=== PATIENT | female | born 1940 | race Caucasian/White ===

== ENCOUNTER → 2023-08-12 14:08 | Outpatient (REF) | payer MEDICARE, SELFPAY | LOC: HWRAD 14:08 | PROVIDERS: ATTENDING PHYSICIAN Internal Medicine Cardiovascular Disease; FAMILY PHYSICIAN Internal Medicine | DX: I48.0 Paroxysmal atrial fibrillation (principal); Z79.899 Other long term (current) drug therapy | CPT/HCPCS: 71046 ==

== ENCOUNTER → 2023-09-22 12:42 | Outpatient (REF) | payer MEDICARE, SELFPAY | LOC: HWRCS 12:42 | PROVIDERS: ATTENDING PHYSICIAN Internal Medicine Cardiovascular Disease; FAMILY PHYSICIAN Internal Medicine | DX: I50.32 Chronic diastolic (congestive) heart failure (principal); I48.0 Paroxysmal atrial fibrillation; I34.0 Nonrheumatic mitral (valve) insufficiency; Z79.899 Other long term (current) drug therapy | CPT/HCPCS: 93306 ==

== ENCOUNTER 2024-03-23 18:49 | Inpatient (IN) | payer MEDICARE, SELFPAY ==
[2024-03-23] VITALS (12 sets, daily range): BP systolic 118–148; BP diastolic 55–76; BMI 17.4
--- NOTE | 2024-03-23 10:47 | ED.GENMED ---
ED Provider Triage
<Jyothi Lema BATCH HEAT TREAT OPERATOR - Last Filed: 03/23/24 10:49>
-
Patient seen by provider in Triage?: Seen in Triage
Attestation: A medical screening examination has been initiated by a qualified medical provider. Based on the assessment performed at this time, it has been determined that an emergent medical condition may exist and the patient has been informed
that further medical evaluation and possible additional diagnostic testing may be needed.
HPI: 83-year-old female with history of colon cancer, anemia presents with her who states she has been 'gasping for air.' When she had a cold 3 weeks ago, it got better but in the past week it got worse again.
GENERAL: Alert , in no apparent distress
EYE: No visual abnormalities.
NECK: Trachea midline
ENT: No visible abnormalities.
LUNGS: No acute respiratory distress
NEUROLOGICAL: Alert and oriented
SKIN: Skin intact. No visible changes.
MUSCULOSKELETAL: Moving extremities normally
PSYCH: Normal and appropriate interaction.
This is a medical evaluation conducted in person to initiate diagnostic evaluation and provide initial therapeutics. Please see further documentation by the treating clinician.
History of Present Illness
<Jyothi Lema BATCH HEAT TREAT OPERATOR - Last Filed: 03/23/24 10:49>
General
Chief Complaint: Breathing Problem
Time Seen by Provider: 03/23/24 12:41
<Karlos Rowe MD - Last Filed: 03/23/24 19:39>
General
Source: patient
Exam Limitations: none
Nursing documentation reviewed up to this point in time: agreed with
History of Present Illness
History of Present Illness:
Patient presents to ED from home secondary to worsening cough, shortness of breath, and decreased appetite over the past 2 weeks. Patient states that she has hard time ambulating due to generalized weakness. Denies fever. Patient reports nausea
sensation without vomiting. Patient does report diarrhea since yesterday. Denies rash. Denies headache. Denies sore throat. Denies back pain. Denies recent travel. Denies sick contact. Patient states that she has not been able to take any of
the medication for the past 1 week due to constant nausea and decreased appetite.
Past History
<Jyothi Lema NP - Last Filed: 03/23/24 10:49>
Past History
ED Past Medical History: None
ED Past Surgical History:
Social History
Tobacco: Non-smoker
Alcohol: None
Drug: None
Personal:
Living: with family
Employment: Retired
Review of Systems
<Karlos Rowe MD - Last Filed: 03/23/24 19:39>
Review of Systems
Allergies reviewed?: Yes
All Other Systems: ROS reviewed and negative except as documented in HPI and ROS
Constitutional: Reports no symptoms; Denies fever
EENT: Reports no symptoms
Respiratory: Reports cough and trouble breathing
Cardiac: Reports no symptoms
ABD/GI: Reports nausea and diarrhea; Denies abdominal pain or vomiting
: Reports no symptoms
Musculoskeletal: Reports no symptoms
Skin: Reports no symptoms
Neurological: Reports weakness; Denies dizzy or headache
Phy Exam
<Karlos Rowe MD - Last Filed: 03/23/24 19:39>
Physical Exam
Physical Exam:
Physical Exam
General: moderate respiratory distress, acutely ill. afebrile. weak appearing
Head: nc/at. eomi
Neck: supple. no meningeal signs. no jvd
Heart: s1/s2 regular rate and rhythm, systolic ejection murmur.
Lungs: no acute respiratory distress. diminished breath sounds bilaterally
Abdomen: normal bowel sounds. not tender.
Neuro: alert and oriented x 3. no focal neurological deficits
Skin: no rash
Psychiatric: well kept. interactive and cooperative
Extremities: no edema. no calf tenderness.
Scores
<Karlos Rowe MD - Last Filed: 03/23/24 19:39>
Heart Failure Risk
Heart Failure Risk Score: Not Applicable
Course
<Jyothi Lema NP - Last Filed: 03/23/24 10:49>
Orders/Labs/Results
Orders:
Orders
03/23/24 10:54
Electrocardiogram (*1) Urgent
Reason for Study: Shortness of Breath
EKG- Treatment ONCE
03/23/24 11:17
BNP [NT-proBNP] Urgent
COVID-19 Antigen Urgent
Source: Nasal Swab
Complete Blood Count/With Diff Urgent
Troponin I Urgent
Influenza A+B Rapid Molecular Urgent
KEMAL Source: Nasal Swab
Specimen Description:
03/23/24 12:29
CXR [CR Chest Portable - 1 View] Urgent
Comment:
Reason For Exam: sob
Reason Study Needs to be Portable: Patient Unstable
03/23/24 12:53
0.9% Sodium Chloride 500 ml [Nss] 500 ml IV BOLUS
03/23/24 12:54
Albuterol Nebs [Ventolin Nebules] 2.5 mg INH R NOW STA
Guaifenesin/Codeine Solution [Robitussin AC] 10 ml PO NOW STA
03/23/24 12:55
Add On- LAB Urgent
Tests Added?: magnesium, TSH to reflex Free T4
03/23/24 13:01
Comprehensive Metabolic Panel Urgent
Free T4 Urgent
Comment: ADD ON
Magnesium Urgent
Comment: ADD
TSH Urgent
Comment: ADD ON
03/23/24 13:10
Respiratory Syncytial Virus Urgent
KEMAL Source: Nasal Swab
Specimen Description:
Date Specimen was Collected: 03/23/24
Time Specimen was Collected: 13:01
03/23/24 13:39
CT Chest PE Study Urgent
Comment:
Reason For Exam: severe hypoxia
03/23/24 14:59
Add On- LAB Urgent
Tests Added?: tsh
03/23/24 Dinner
NPO
Allow oral meds: No
Allow clear liquids: No
03/23/24 16:38
Piperacillin/Tazo 3.375 Gram [Zosyn] 3.375 gram in 50 ml IV NOW
03/23/24 16:39
Vancomycin 1 Gram/200 ml [Vancocin] 1 gram in 200 ml IV NOW
03/23/24 17:05
Add On- LAB Stat
Comments:: mag
Tests Added?: bmp
03/23/24 17:06
Add On- LAB Stat
Comments:: free t4
Tests Added?: reflex off of tsh
03/23/24 17:12
Blood Culture Q30M
KEMAL Source: Blood/Venous
Specimen Description:
03/23/24 17:13
Lactic Acid Q4H
Comment: CANCEL 2nd LACTIC ACID IF 1st LACTIC ACID IS LESS THAN 2
Blood Culture Q30M
KEMAL Source: Blood/Venous
Specimen Description:
03/23/24 18:00
Potassium Chloride [KCl] 40 meq PO Q4H
03/23/24 18:11
Admit/Transfer Patient As Directed
Co-Sign Provider:
Level of Care: Inpatient admission
Assign to:: Telemetry
Physician / Group: Hospitalist
Diagnosis: Pneumonia
Reason for Telemetry: Medication for Arrhythmia
Date to Stop Telemetry: 03/25/24
Time to Stop Telemetry: 11:00
Reason for Hospitalization: Pneumonia
Expected length of stay greater than two midnights?: Yes
ELOS- Estimated Length of Stay in days: 3
I certify the patient meets the requirements for IP care: Yes
03/23/24 18:12
PRN Pain Medication Management As Directed
May give lesser potent ordered pain med per pt: Yes
preference::
Protocol:: Medication orders for pain may be administered in a
manner that supports deferring to patient preference
when the pt is:
- Requesting an ordered lesser potent pain medication.
Least to most potent pain medications are defined
as: acetaminophen < NSAID < tramadol < opioids
(morphine, oxycodone, hydromorphone).
- Requesting a lesser dose of the same medication IF
ORDERED.
- Requesting a less intrusive route of administration
if both routes are prescribed by the provider (PO <
IV).
03/23/24 18:14
Code Status As Directed
Resuscitation Status: Full Code
03/23/24 18:20
Potassium Chloride [KCl] 40 meq 0.9% Sodium Chloride 250 ml [Nss] 250 ml IV NOW
03/23/24 19:08
0.9% Sodium Chloride 1000 ml [Nss] 1,000 ml IV 100 mls/hr
Bisacodyl [Dulcolax] 10 mg RECTAL [id number] PRN
Ipratropium/Albuterol Sulfate [Duoneb] 3 ml INH R Q4HPRN PRN
03/23/24 19:08
Procalcitonin Routine
PCT Algorithmm Indication: Respiratory
Urinalysis Reflex To Culture Urgent
Legionella Urinary Antigen Routine
KEMAL Source: Urine
Specimen Description:
Respiratory Culture/Gram Stain Routine
KEMAL Source: Sputum
Specimen Description:
Comment: IF NOT OBTAINED IN ED
Strep pneumoniae Antigen Routine
KEMAL Source: Urine
Specimen Description:
Activity As Directed
Activity Level: As Tolerated
Intake/ Output As Directed
Frequency: Per unit guidelines
Pneumatic Compression Sleeves As Directed
Type: Knee high
Vital Signs As Directed
Frequency: Per unit guidelines
Incentive Spirometry [Rx Incentive Spirometry] [RESP] Routine
Frequency: q1h while awake
O2 Therapy [RESP] Routine
Titrate/Wean O2 to maintain O2 sat greater than (%): 92
Pulse Ox/cont/shift [RESP] Routine
Quantity: 1
Special Instructions: continuous pulse ox
Speech Therapy Eval & Treat Routine
DX Deep Vein Thrombosis Video Routine
03/23/24 20:00
Apixaban [Eliquis] 5 mg PO BID
Doxycycline Hyclate [Vibramycin] 100 mg 0.9% Sodium Chloride 250 ml [Nss] 250 ml IV Q12H
Metoprolol [Lopressor] 25 mg PO BID
Piperacillin/Tazo 3.375 Gram [Zosyn] 3.375 gram in 50 ml IV Q6H
03/23/24 22:00
Mirtazapine [Remeron] 7.5 mg PO HS
03/24/24 06:00
Complete Blood Count/No Diff IN AM
Comprehensive Metabolic Panel IN AM
Levothyroxine [Synthroid] 25 mcg PO DAILY @ 0600
03/24/24 08:00
Amiodarone [Pacerone] 200 mg PO DAILY
Amlodipine [Norvasc] 5 mg PO DAILY
Furosemide [Lasix] 20 mg PO DAILY
03/25/24 11:00
DC Protocol for Telemetry ONCE
Abnormal Lab Results
03/23/24 03/23/24
11:17 13:01
WBC 12.5 H 10^3/uL
(4.8-10.8)
MCHC 31.0 L g/dL
(33.0-37.0)
RDW 15.1 H %
(11.5-14.5)
Plt Count 438 H 10^3/uL
(130-400)
Abs Immat Gran (auto) 0.1 H 10^3/uL
(0-0.05)
Absolute Neuts (auto) 11.1 H 10^3/uL
(1.4-6.5)
Absolute Lymphs (auto) 0.5 L 10^3/uL
(1.2-3.4)
Absolute Monos (auto) 0.8 H 10^3/uL
(0.1-0.6)
Immature Gran % 0.9 H %
(0-0.5)
Neutrophils % 88.8 H %
(42.2-75.2)
Lymphocytes % 3.8 L %
(20.5-51.1)
Potassium 3.3 L mmol/L
(3.5-5.1)
Chloride 95 L mmol/L
(98-107)
Carbon Dioxide 35 H mmol/L
(22-30)
BUN 29 H mg/dl
(7-17)
Creatinine 1.1 H mg/dL
(0.6-1.0)
Glucose 122 H mg/dl
(70-99)
Albumin 3.4 L g/dl
(3.5-5.0)
TSH 0.40 L uIU/ml
(0.47-4.68)
Free T4 3.36 H ng/dl
(0.78-2.19)
03/23/24 11:17
03/23/24 13:01
Vital Signs
Initial and Last Documented VS:
Initial Vital Signs
Temp Pulse Resp BP Pulse Ox
98.8 F 92 16 124/64 77
03/23/24 10:47 03/23/24 10:47 03/23/24 10:47 03/23/24 10:47 03/23/24 10:47
Last Documented Vital Signs
Temp Pulse Resp BP Pulse Ox
98.8 F 87 16 136/59 93
03/23/24 10:47 03/23/24 17:30 03/23/24 10:47 03/23/24 17:00 03/23/24 17:30
<Karlos Rowe MD - Last Filed: 03/23/24 19:39>
Orders/Labs/Results
Orders:
Orders
03/23/24 10:54
Electrocardiogram (*1) Urgent
Reason for Study: Shortness of Breath
EKG- Treatment ONCE
03/23/24 11:17
BNP [NT-proBNP] Urgent
COVID-19 Antigen Urgent
Source: Nasal Swab
Complete Blood Count/With Diff Urgent
Troponin I Urgent
Influenza A+B Rapid Molecular Urgent
KEMAL Source: Nasal Swab
Specimen Description:
03/23/24 12:29
CXR [CR Chest Portable - 1 View] Urgent
Comment:
Reason For Exam: sob
Reason Study Needs to be Portable: Patient Unstable
03/23/24 12:53
0.9% Sodium Chloride 500 ml [Nss] 500 ml IV BOLUS
03/23/24 12:54
Albuterol Nebs [Ventolin Nebules] 2.5 mg INH R NOW STA
Guaifenesin/Codeine Solution [Robitussin AC] 10 ml PO NOW STA
03/23/24 12:55
Add On- LAB Urgent
Tests Added?: magnesium, TSH to reflex Free T4
03/23/24 13:01
Comprehensive Metabolic Panel Urgent
Free T4 Urgent
Comment: ADD ON
Magnesium Urgent
Comment: ADD
TSH Urgent
Comment: ADD ON
03/23/24 13:10
Respiratory Syncytial Virus Urgent
KEMAL Source: Nasal Swab
Specimen Description:
Date Specimen was Collected: 03/23/24
Time Specimen was Collected: 13:01
03/23/24 13:39
CT Chest PE Study Urgent
Comment:
Reason For Exam: severe hypoxia
03/23/24 14:59
Add On- LAB Urgent
Tests Added?: tsh
03/23/24 Dinner
NPO
Allow oral meds: No
Allow clear liquids: No
03/23/24 16:38
Piperacillin/Tazo 3.375 Gram [Zosyn] 3.375 gram in 50 ml IV NOW
03/23/24 16:39
Vancomycin 1 Gram/200 ml [Vancocin] 1 gram in 200 ml IV NOW
03/23/24 17:05
Add On- LAB Stat
Comments:: mag
Tests Added?: bmp
03/23/24 17:06
Add On- LAB Stat
Comments:: free t4
Tests Added?: reflex off of tsh
03/23/24 17:12
Blood Culture Q30M
KEMAL Source: Blood/Venous
Specimen Description:
03/23/24 17:13
Lactic Acid Q4H
Comment: CANCEL 2nd LACTIC ACID IF 1st LACTIC ACID IS LESS THAN 2
Blood Culture Q30M
KEMAL Source: Blood/Venous
Specimen Description:
03/23/24 18:00
Potassium Chloride [KCl] 40 meq PO Q4H
03/23/24 18:11
Admit/Transfer Patient As Directed
Co-Sign Provider:
Level of Care: Inpatient admission
Assign to:: Telemetry
Physician / Group: Hospitalist
Diagnosis: Pneumonia
Reason for Telemetry: Medication for Arrhythmia
Date to Stop Telemetry: 03/25/24
Time to Stop Telemetry: 11:00
Reason for Hospitalization: Pneumonia
Expected length of stay greater than two midnights?: Yes
ELOS- Estimated Length of Stay in days: 3
I certify the patient meets the requirements for IP care: Yes
03/23/24 18:12
PRN Pain Medication Management As Directed
May give lesser potent ordered pain med per pt: Yes
preference::
Protocol:: Medication orders for pain may be administered in a
manner that supports deferring to patient preference
when the pt is:
- Requesting an ordered lesser potent pain medication.
Least to most potent pain medications are defined
as: acetaminophen < NSAID < tramadol < opioids
(morphine, oxycodone, hydromorphone).
- Requesting a lesser dose of the same medication IF
ORDERED.
- Requesting a less intrusive route of administration
if both routes are prescribed by the provider (PO <
IV).
03/23/24 18:14
Code Status As Directed
Resuscitation Status: Full Code
03/23/24 18:20
Potassium Chloride [KCl] 40 meq 0.9% Sodium Chloride 250 ml [Nss] 250 ml IV NOW
03/23/24 19:08
0.9% Sodium Chloride 1000 ml [Nss] 1,000 ml IV 100 mls/hr
Bisacodyl [Dulcolax] 10 mg RECTAL [id number] PRN
Ipratropium/Albuterol Sulfate [Duoneb] 3 ml INH R Q4HPRN PRN
03/23/24 19:08
Procalcitonin Routine
PCT Algorithmm Indication: Respiratory
Urinalysis Reflex To Culture Urgent
Legionella Urinary Antigen Routine
KEMAL Source: Urine
Specimen Description:
Respiratory Culture/Gram Stain Routine
KEMAL Source: Sputum
Specimen Description:
Comment: IF NOT OBTAINED IN ED
Strep pneumoniae Antigen Routine
KEMAL Source: Urine
Specimen Description:
Activity As Directed
Activity Level: As Tolerated
Intake/ Output As Directed
Frequency: Per unit guidelines
Pneumatic Compression Sleeves As Directed
Type: Knee high
Vital Signs As Directed
Frequency: Per unit guidelines
Incentive Spirometry [Rx Incentive Spirometry] [RESP] Routine
Frequency: q1h while awake
O2 Therapy [RESP] Routine
Titrate/Wean O2 to maintain O2 sat greater than (%): 92
Pulse Ox/cont/shift [RESP] Routine
Quantity: 1
Special Instructions: continuous pulse ox
Speech Therapy Eval & Treat Routine
DX Deep Vein Thrombosis Video Routine
03/23/24 20:00
Apixaban [Eliquis] 5 mg PO BID
Doxycycline Hyclate [Vibramycin] 100 mg 0.9% Sodium Chloride 250 ml [Nss] 250 ml IV Q12H
Metoprolol [Lopressor] 25 mg PO BID
Piperacillin/Tazo 3.375 Gram [Zosyn] 3.375 gram in 50 ml IV Q6H
03/23/24 22:00
Mirtazapine [Remeron] 7.5 mg PO HS
03/24/24 06:00
Complete Blood Count/No Diff IN AM
Comprehensive Metabolic Panel IN AM
Levothyroxine [Synthroid] 25 mcg PO DAILY @ 0600
03/24/24 08:00
Amiodarone [Pacerone] 200 mg PO DAILY
Amlodipine [Norvasc] 5 mg PO DAILY
Furosemide [Lasix] 20 mg PO DAILY
03/25/24 11:00
DC Protocol for Telemetry ONCE
Abnormal Lab Results
03/23/24 03/23/24
11:17 13:01
WBC 12.5 H 10^3/uL
(4.8-10.8)
MCHC 31.0 L g/dL
(33.0-37.0)
RDW 15.1 H %
(11.5-14.5)
Plt Count 438 H 10^3/uL
(130-400)
Abs Immat Gran (auto) 0.1 H 10^3/uL
(0-0.05)
Absolute Neuts (auto) 11.1 H 10^3/uL
(1.4-6.5)
Absolute Lymphs (auto) 0.5 L 10^3/uL
(1.2-3.4)
Absolute Monos (auto) 0.8 H 10^3/uL
(0.1-0.6)
Immature Gran % 0.9 H %
(0-0.5)
Neutrophils % 88.8 H %
(42.2-75.2)
Lymphocytes % 3.8 L %
(20.5-51.1)
Potassium 3.3 L mmol/L
(3.5-5.1)
Chloride 95 L mmol/L
(98-107)
Carbon Dioxide 35 H mmol/L
(22-30)
BUN 29 H mg/dl
(7-17)
Creatinine 1.1 H mg/dL
(0.6-1.0)
Glucose 122 H mg/dl
(70-99)
Albumin 3.4 L g/dl
(3.5-5.0)
TSH 0.40 L uIU/ml
(0.47-4.68)
Free T4 3.36 H ng/dl
(0.78-2.19)
03/23/24 11:17
03/23/24 13:01
Vital Signs
Initial and Last Documented VS:
Initial Vital Signs
Temp Pulse Resp BP Pulse Ox
98.8 F 92 16 124/64 77
03/23/24 10:47 03/23/24 10:47 03/23/24 10:47 03/23/24 10:47 03/23/24 10:47
Last Documented Vital Signs
Temp Pulse Resp BP Pulse Ox
98.8 F 87 16 136/59 93
03/23/24 10:47 03/23/24 17:30 03/23/24 10:47 03/23/24 17:00 03/23/24 17:30
Omarlt;Karlos Rowe MD - Last Filed: 03/23/24 19:39>
MDM/Problems Addressed
MDM/Problems Addressed:
Initial x-ray without any acute findings. However in light of patient's significant hypoxia without clear etiology, decision made to perform CTA PE study.
CTA PE report reviewed and discussed with patient. Patient with likely aspiration pneumonitis versus pneumonia. Patient will be admitted for IV antibiotics and continual supplemental consistent administration.
<aKrlos Rowe MD - Last Filed: 03/23/24 19:39>
*Critical Care Note
Total Time (30-74mins, 75-104mins- exclusive of procedures): Not Applicable
ED Attending Note
<Jyothi Lema NP - Last Filed: 03/23/24 10:49>
-
Portions of this chart may have been created with voice recognition software.� Occasional wrong word or��sound alike� substitutions may have occurred due to the inherent limitations of voice recognition software.
Discharge Plan
Departure
Patient Disposition: Admit
Date of Disposition: 03/23/24
Time of Disposition: 16:41
Admit to: IMU
Presentation/result/management discussed w/ accepting MD/DO: Hospitalist
Discharge Problem:
Hypoxia, Pneumonia
Interventions
Interventions:
*Risk Screen - Suicide Last Done: 03/23/24 10:47
*General Assessment Last Done: 03/23/24 15:00
*Neglect/Abuse Screening Last Done: 03/23/24 15:00
*ED COVID-19 Vaccine History Last Done: 03/23/24 15:00
ED- Cardiac Assessment Last Done: 03/23/24 15:00
ED- Pulmonary Assessment Last Done: 03/23/24 15:00
[2024-03-23 11:32] LABS: % Basophils 0.2 % (0-2); % Immature Granulocytes 0.9 % (0-0.5); % Lymphocytes 3.8 % (20.5-51.1); % Monocytes 6.3 % (1.7-9.3); % Neutrophils 88.8 % (42.2-75.2); Absolute Immature Granulocytes 0.1 10^3/uL (0-0.05); Absolute Lymphocytes 0.5 10^3/uL (1.2-3.4); Absolute Monocytes 0.8 10^3/uL (0.1-0.6); Absolute Neutrophils 11.1 10^3/uL (1.4-6.5); Hemoglobin 12.1 g/dL (12.0-16.0); Mean Corpuscular Volume 87.1 fL (81.0-99.0); Mean Platelet Volume 9.4 fL (7.4-10.4); Nucleated Red Blood Cells % 0 %; Platelet Count 438 10^3/uL (130-400); Red Blood Cell Count 4.48 10^6/uL (4.20-5.40); Red Cell Dist. Width 15.1 % (11.5-14.5); White Blood Cell Count 12.5 10^3/uL (4.8-10.8)
[2024-03-23 11:43] LABS: COVID-19 Antigen Negative (Negative)
[2024-03-23 12:01] LABS: NT-proBNP 2230 pg/ml
[2024-03-23 12:30] LABS: Troponin I 0.018 ng/ml
[2024-03-23] MEDS: NSS 500 IV (13:02)
[2024-03-23] MEDS: VENTOLIN NEBULES 2.5 MG INH (13:06)
[2024-03-23] MEDS: ROBITUSSIN AC 10 ML PO (13:06)
[2024-03-23 13:28] LABS: ALT (SGPT) 20 U/L (0-35); AST (SGOT) 21 U/L (14-36); Albumin 3.4 g/dl (3.5-5.0); Alkaline Phosphatase 98 U/L (38-126); Blood Urea Nitrogen 29 mg/dl (7-17); Calcium 9.7 mg/dl (8.4-10.2); Chloride 95 mmol/L (98-107); Glucose 122 mg/dl (70-99); Magnesium 2.3 mg/dl (1.6-2.3); Sodium 141 mmol/L (135-145); Total Bilirubin 0.6 mg/dl (0.2-1.3); Total Protein 6.8 g/dl (6.3-8.2); eGFR 49.86
[2024-03-23 14:42] LABS: Carbon Dioxide 35 mmol/L (22-30); Potassium 3.3 mmol/L (3.5-5.1)
[2024-03-23 17:32] LABS: Lactic Acid 1.2 mmol/L (0.7-2.0)
[2024-03-23] MEDS: ZOSYN 50 IV (17:38)
[2024-03-23 17:55] LABS: Free T4 3.36 ng/dl (0.78-2.19)
[2024-03-23] MEDS: VANCOCIN 200 IV (18:19)
--- NOTE | 2024-03-23 18:29 | HPS.HSE ---
Addendum entered and electronically signed by Yo Mejia MD 03/24/24 14:11:
Acute hypoxemic respiratory failure, the lowest documented SpO2 in the 70s, currently on 4 L
Suspect superimposed bacterial infection versus aspiration versus community-acquired
Pro-Stephen
IV antibiotics
Sputum culture blood culture
Wean oxygen as tolerated
Aspiration precautions
N.p.o.
Sepsis white count heart rate lungs
Blood cultures sputum culture
IV antibiotics
Atrial fibrillation
Amiodarone and beta-mike Eliquis
HFpEF, hypovolemic, hold Lasix
Hypokalemic replete as needed
Hypothyroid continue Synthroid
Original Note:
Family Physician
-
Family Physician: Nabor Kevin MD
Chief Complaint
-
SOB, Cough, Nausea, Loss of Appetite
History of Present Illness
83-year-old female with past medical history of HFpEF, paroxysmal atrial fibrillation, hypertension, hypothyroidism presented with 2 weeks of worsening cough, shortness of breath, decreased appetite. Patient states that approximately 3 weeks ago
she and her had a viral illness. The 's illness resolved after 1 week, however her illness continued. Over the past week, patient states that cough and shortness of breath have been progressively worsening. Cough is productive of
clear sputum. Patient notes that she is normally able to do many chores around the house, however over the past 2 days has only been able to walk approximately 20 feet to her bathroom before becoming short of breath. Additionally, she reports a
loss of appetite with nausea, however denies any vomiting, abdominal pain, diarrhea, constipation. Patient does note however, that she has been unable to take her oral medications for approximately 1 week. Patient denies the use of home oxygen.
ED course: Patient was moderate respiratory distress, afebrile, weak and was saturating 77% on room air on arrival.
WBC 12.5, K3.3, CR 1.1. EKG showed prolonged QT interval. EKG showed possible inferolateral ischemia. Troponins negative. BNP 2230.
COVID/flu/RSV negative. Chest x-ray: No acute pulmonary abnormality. Chest CT: Severe pneumonia, bronchiolitis throughout the right lung likely secondary to aspiration and a 4 mm nodule in the lingula.
Medical History
Past Medical History
Past Medical History: Reports Other (Heart failure with preserved ejection fraction (EF 60 to 65%), paroxysmal atrial fibrillation, hypertension, hypothyroidism, colon cancer, chronic anemia)
Past Surgical History: Reports Bowel Resection
Social History
Tobacco: Former Smoker (Quit smoking approximately 25 years ago. Half pack a day smoker for approximately 20 years.)
Alcohol: None
Drug: None
Personal:
Living: With Family
Employment: Retired
Family History
Family History: Not pertinent
Allergies / Home Medications
Allergies reflects when Allergies were last updated in [employer].
Home Medications with original date entered in [employer]
Allergy/Medication List:
No known drug allergies.
Amlodipine 5 mg p.o. daily
Levothyroxine 25 mcg p.o. daily
Mirtazapine 15 mg p.o. daily
Metoprolol 25 mg p.o. daily
Amiodarone 200 mg p.o. daily
Eliquis 5 mg p.o. twice daily
Furosemide 20 mg p.o. daily
Review of Systems
-
History Source: Patient
A 12 point ROS was completed and negative except as noted: Yes
Physical Exam
Vital Signs
Vital Signs
Temp Pulse Resp BP Pulse Ox
98.8 F 87 16 136/59 93
03/23/24 10:47 03/23/24 17:30 03/23/24 10:47 03/23/24 17:00 03/23/24 17:30
Physical Exam
General: Cachectic (Frail, elderly) and Other (No apparent distress on 4 L of oxygen)
HEENT: NormoCephalic, Anicteric and Moist mucous membranes
Respiratory: Non Labored Respirations (On 4 L of oxygen) and Decreased Breath Sounds (Throughout)
Cardiac: Irregular Rhythm and Murmur; No Tachycardia
GI: Soft, Non Tender and Non Distended
Musculoskeletal: No Clubbing, No Cyanosis and No Edema
Skin: Warm and Dry
Neuro: Awake and Alert
Psych: Calm
Laboratory Results
-
03/23/24 11:17
03/23/24 13:01
Laboratory Results
Lactic Acid Cancelled 03/23/24 20:45
Total Bilirubin 0.6 mg/dl (0.2-1.3) 03/23/24 13:01
AST 21 U/L (14-36) 03/23/24 13:01
ALT 20 U/L (0-35) 03/23/24 13:01
Alkaline Phosphatase 98 U/L (38-126) 03/23/24 13:01
Troponin I 0.018 ng/ml 03/23/24 11:17
Data Reviewed
-
Diagnostic Radiology: Report Reviewed by me and Discussed with Patient
CT Scan: Report Reviewed by me and Discussed with Patient
Lab Data: Labs Reviewed by me and Discussed with Patient
Impression/Plan
-
1. Pneumonia (Sepsis POA)
-aspiration versus superimposed on recent viral infection
-IV doxycycline; transition to p.o. once diet is advanced
-IV Zosyn
-N.p.o., speech and swallow evaluation
-IVF: NS at 100 mL/h
-Oxygen by nasal cannula as needed, wean as tolerated (4 L on day of admission)
-DuoNebs as needed, incentive spirometry
-Sputum culture, blood cultures, Legionella urinary antigen, strep antigen, procalcitonin
2. HFpEF
-Continue home Lasix 20 mg daily
3. Paroxysmal atrial fibrillation
-Continue home meds: Metoprolol, amiodarone, Eliquis
4. Hypertension
-Continue home meds: Norvasc
5. Hypothyroidism
-Continue home meds: Levothyroxine
6. Hypokalemia (POA)
-Replete 40 mEq now
7. Mild DOMINGO
-Creatinine 1.1 on admission
-Follow-up BMP in a.m.
8. Pulmonary nodule
-4 mm nodule in the lingula on CT chest
-Outpatient follow-up, repeat imaging in 12 months
PCP: Dr. Kevin
N.p.o./SCDs
[2024-03-23] MEDS: NSS 1000 IV (19:53)
[2024-03-23] MEDS: KCL 270 MEQ IV (19:54)
[2024-03-23] MEDS: VIBRAMYCIN 260 MG IV (20:10)
[2024-03-23] MEDS: LOPRESSOR 25 MG PO (20:11)
--- NOTE | 2024-03-23 21:30 | PTCARENOTE ---
Pt received from ED at 2114. Pt pleasant, AAOx3, VSS, and rolled into room. Pt exhibiting moist cough, on 4L NC, O2 95%, and does not complain of any pain at this time. Pt receptive to room and call geiger. Pt bed in lowest position and call geiger
within reach. Pt educated on importance of call geiger usage, pt relays understanding and cooperation. Will continue with current plan of care.
--- NOTE | 2024-03-23 23:54 | W.PN.UPDATE ---
Update Note
Progress Note Update
based on pt weight of 43kg pharmacy recommends change of eliquis from 5mg bid to 2.5mg bid
[2024-03-24] MEDS: ELIQUIS 2.5 MG PO ×3 (00:03→19:52)
[2024-03-24] MEDS: REMERON 7.5 MG PO ×2 (00:04→22:08)
[2024-03-24] MEDS: ZOSYN 50 IV ×5 (00:31→23:11)
[2024-03-24] MEDS: ROBITUSSIN 200 MG PO (00:41)
[2024-03-24 03:59] VITALS: BP 136/76
[2024-03-24] MEDS: SYNTHROID 25 MCG PO (05:26)
[2024-03-24] MEDS: NSS 1000 IV ×2 (05:26→17:19)
[2024-03-24 06:28] LABS: Glucose - Point of Care 105 mg/dl (70-99)
[2024-03-24 07:24] LABS: Hematocrit 32.4 % (37.0-47.0); Mean Corp Hgb Conc. 30.9 g/dL (33.0-37.0); Mean Corpuscular Hgb 27.2 pg (27.0-31.0); Mean Platelet Volume 9.8 fL (7.4-10.4); Platelet Count 353 10^3/uL (130-400); Red Blood Cell Count 3.68 10^6/uL (4.20-5.40); White Blood Cell Count 8.6 10^3/uL (4.8-10.8)
[2024-03-24 07:32] VITALS: BP 140/60
[2024-03-24 07:44] LABS: ALT (SGPT) 18 U/L (0-35); AST (SGOT) 24 U/L (14-36); Albumin 2.7 g/dl (3.5-5.0); Alkaline Phosphatase 81 U/L (38-126); Blood Urea Nitrogen 16 mg/dl (7-17); Calcium 8.5 mg/dl (8.4-10.2); Carbon Dioxide 35 mmol/L (22-30); Chloride 105 mmol/L (98-107); Estimated Creatinine Clearance 32 ml/min; Glucose 99 mg/dl (70-99); Potassium 4.2 mmol/L (3.5-5.1); Sodium 144 mmol/L (135-145); Total Bilirubin 0.3 mg/dl (0.2-1.3); Total Protein 5.6 g/dl (6.3-8.2); eGFR > 60.00
[2024-03-24] MEDS: VIBRAMYCIN 260 MG IV (08:22)
[2024-03-24] MEDS: LASIX 20 MG PO (08:27)
[2024-03-24] MEDS: PACERONE 200 MG PO (08:27)
[2024-03-24] MEDS: LOPRESSOR 25 MG PO ×2 (08:27→19:54)
[2024-03-24] MEDS: NORVASC 5 MG PO (08:27)
[2024-03-24 09:13] LABS: Urine Albumin 2+ (Neg - Trace); Urine Bilirubin Negative (Negative); Urine Character Clear (Clear); Urine Color Yellow; Urine Glucose Negative (Negative); Urine Ketone Negative (Negative); Urine Leukocyte Negative (Negative); Urine Nitrite Negative (Negative); Urine Occult Blood Negative (Negative); Urine Specific Gravity 1.015 (<1.030); Urine Urobilinogen Negative (Neg - 1+)
--- NOTE | 2024-03-24 09:24 | CON.CAR ---
Consultation
Consultation Request
Date/Time Consultation Requested: 03/24/24
Date/Time Consultation Performed: 03/24/24
Requesting Provider: Libertad
Performing Provider: Rd
Reason for Consultation: Chronic HF
Medical History
-
Chief Complaint: cough and shortness of breath
History of Present Illness:
83 yo woman presents with several weeks of cough and dyspnea found to have elevated WBC and CT chest findings suggestive of LL PNA. She was admitted to telemetry floor where she is being treated with IV abx for PNA. Still requiring supplemental O2
today. Cardiology is asked to evaluated for possible CHF.
Known history of HFpEF maintained on low dose daily lasix as an outpatient. Patient tells me no significant LE edema or weight gain leading up to this hospitalization. proBNP was elevated to 2230 on admission.
Reporting cough and shortness of breath to me today. But no chest pain or pressure.
PMHx:
Heart failure with preserved ejection fraction (EF 60 to 65%)
Paroxysmal atrial fibrillation
Hypertension
Hypothyroidism
Colon cancer
Chronic anemia
Bowel Resection
Past Medical History
Past Medical History: Other (As above)
Past Surgical History: Other (As above)
Social History
Tobacco: Former Smoker
Family History
Family History: Reviewed & Not Pertinent
Allergies / Home Medications
Allergy/AdvReac Type Severity Reaction Status Date / Time
No Known Allergies Allergy Verified 03/23/24 10:54
�Medication �Instructions �Recorded �Confirmed �Type
apixaban 5 mg tablet (Eliquis) 5 mg PO BID ##30 09/12/18 03/23/24 Rx
amlodipine 5 mg tablet 5 mg PO DAILY 07/16/21 03/23/24 History
furosemide 20 mg tablet (Lasix) 20 mg PO DAILY 07/16/21 03/23/24 History
levothyroxine 25 mcg tablet 25 mcg PO DAILY 07/16/21 03/23/24 History
mirtazapine 7.5 mg tablet 7.5 mg PO HS 07/16/21 03/23/24 History
amiodarone 200 mg tablet (Pacerone) 200 mg PO DAILY 03/23/24 03/23/24 History
metoprolol tartrate 25 mg tablet 25 mg PO BID 03/23/24 03/23/24 History
Review of Systems
-
History Source: Patient
All other systems: Negative unless noted
Physical Exam
Vital Signs
Temp Pulse Resp BP Pulse Ox
98.3 F 71 18 140/60 98
03/24/24 07:32 03/24/24 08:27 03/24/24 07:32 03/24/24 08:27 03/24/24 07:32
Lab Results
03/24/24 06:36
03/24/24 06:36
Troponin I 0.018 ng/ml 03/23/24 11:17
Crx-U-Rvkewkrolke Pept 2230 pg/ml 03/23/24 11:17
Physical Exam
General: Well Developed
HEENT: Normocephalic
Respiratory: Crackles (as bases b/l) and Non Labored Respirations (on supplemental O2 via NC)
Cardiac: S1/S2 and Regular Rhythm
Breast: Deferred by me
GI: Soft
Musculoskeletal: No Edema
Skin: Warm and Dry
Neuro: Awake and Alert
Psych: Calm
Impression / Plan
-
Lead Care Manager: JASE Butts
Assessment:
Hypoxia
Cough
Pneumonia
HFpEF, chronic
Paroxysmal atrial fibrillation
Hypertension
Hypothyroidism
Hypokalemia (POA)
Mild DOMINGO
Plan:
-Presents with several weeks of cough and shortness of breath found to have PNA currently being treated with IV abx
-Cardiology is asked to comment on CHF. Does not appear to be volume overloaded on exam. I do not think her presentation represents acute HF.
-Would continue daily maintenance diuretic, lasix 20mg daily
-Judicious use of IVF
-Monitor daily weights
We will sign off, please recall as needed
Data Reviewed
-
EKG: Tracing Personally Visualized and interpreted
Radiology: Image Personally Visualized and interpreted
CT Scan: Image Personally Visualized and interpreted
Medical Tests (Nuc Med, Echo etc): Report Reviewed by me
Labs: Labs Reviewed by me
Old Records: Reviewed
[2024-03-24 09:29] LABS: Urine Squamous Cell 0-2 /LPF (Few)
[2024-03-24 09:30] LABS: Urine Bacteria Few (Negative); Urine Red Blood Cell 0-2 /HPF (0-2); Urine White Cell 0-2 /HPF (0-5)
--- NOTE | 2024-03-24 09:52 | PTOTSP ---
Speech Therapy Evaluation:
Suspect pt's oropharyngeal swallow function is likely at/near baseline, however pt remains at increased risk of aspiration and related complications given current medical illness with severe PNA (R>L) and increased respiratory requirement. Pt with
slow but functional oral phase and no overt s/sx of aspiration across PO trials. Cough noted in the absence of PO. 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
appears appropriate to cautiously resume oral diet.
Recommend:
1. Initiate CAUTIOUS regular and thin liquid diet. d/c oral diet if worsening in imaging or respiratory status
2. Medications as tolerated
3. Strict aspiration precautions: upright all meals, small bites/sips, slow rate, alternate solids/liquids, partial assistance/supervision.
4. COAT ROOM ATTENDANT to follow re: tolerance of current diet and to determine if instrumental assessment warranted
[2024-03-24 10:56] VITALS: BP 140/50
--- NOTE | 2024-03-24 12:36 | W.PN.HOSP.TC ---
Addendum entered and electronically signed by Yo Mejia MD 03/24/24 14:11:
Acute hypoxemic respiratory failure, the lowest documented SpO2 in the 70s, currently on 4 L
Suspect superimposed bacterial infection versus aspiration versus community-acquired
Pro-Stephen neg
IV antibiotics
Sputum culture blood culture
Wean oxygen as tolerated
Aspiration precautions
Consult pulm
Sepsis white count heart rate lungs
Blood cultures sputum culture
IV antibiotics
Atrial fibrillation
Amiodarone and beta-mike Eliquis
HFpEF, hypovolemic, hold Lasix
Hypokalemic replete as needed
Hypothyroid continue Synthroid
Original Note:
Today's Communication/Plan
-
.
Assessment / Plan
Assessment / Plan
1. Pneumonia (Sepsis POA)
-Aspiration versus superimposed on recent viral infection
-Concern for aspiration on CT; started on IV doxycycline last night; following negative swallow study, transition to doxycycline 100 mg p.o. twice daily today
-Continue IV Zosyn
-N.p.o., speech and swallow evaluation: Negative for aspiration, started on regular diet with thin liquids with resumption of home oral medications.
-Cautious, hold p.o. if any decline in respiratory status or worsening in chest imaging, swallow team will closely follow
-Given 1.5 L total fluid last night; judicious use of fluids given history of HFpEF
-Oxygen by nasal cannula as needed, wean as tolerated (4 L on day of admission)
-Patient continues to feel short of breath despite SaO2 in the high 90s on 4 L. Wean to 3 L, monitor symptoms and SaO2.
-DuoNebs as needed, incentive spirometry, Acapella
-Pro-Stephen negative, sputum culture, blood cultures, Legionella urinary antigen, strep antigen pending.
-Pulmonology consult today for additional recommendations.
2. HFpEF
-Seen by cardiology who do not feel that heart failure is a contributing factor.
-Judicious use of IVF as needed
-Continue home Lasix 20 mg daily
3. Paroxysmal atrial fibrillation
-Continue home meds: Metoprolol, amiodarone, Eliquis
4. Hypertension
-Continue home meds: Norvasc
5. Hypothyroidism
-Continue home meds: Levothyroxine
6. Hypokalemia (POA)
-Replete 40 mEq now
7. Mild DOMINGO
-Creatinine 1.1 on admission
-Follow-up BMP in a.m.
8. Pulmonary nodule
-4 mm nodule in the lingula on CT chest
-Outpatient follow-up, repeat imaging in 12 months
PCP: Dr. Kevin
Regular/SCDs
Anticipated Discharge: 24 - 48 hours
Subjective/Interval History
-
Date of Service: March 24, 2024
Patient seen and examined while resting comfortably in bed, and daughter at bedside. Patient appears to be in slightly better spirits this morning, however, states that she 'still feels icky'. Patient saturating well, however still
complains of intermittent shortness of breath.
Objective Data
-
Labs:
Laboratory Results
03/24/24
06:36
WBC 8.6
Hgb 10.0 L
Hct 32.4 L
Plt Count 353
Sodium 144
Potassium 4.2 D
Chloride 105
Carbon Dioxide 35 H
BUN 16
Creatinine 0.9
Glucose 99
Calcium 8.5
Total Bilirubin 0.3
AST 24
ALT 18
Alkaline Phosphatase 81
Vital Signs:
Vital Signs
Temp Pulse Resp BP Pulse Ox
98.3 F 68 18 140/50 98
03/24/24 10:56 03/24/24 10:56 03/24/24 10:56 03/24/24 10:56 03/24/24 10:56
I&O
03/23/24 03/24/24 03/25/24
06:59 06:59 06:59
Intake Total 1300 / 1300
Output Total 150 / 150
Balance 1150 / 1150
Review of Systems
-
History Source: Patient
Constitutional: Reports No Symptoms
EENT: Reports No Symptoms Reported
Respiratory: Reports Cough and Trouble Breathing
Cardiac: Reports No Symptoms
Abdomen/GI: Reports No Symptoms
Neuro: Reports No Symptoms
Physical Exam
-
General: No Apparent Distress and Other (Elderly, frail)
HEENT: Normocephalic and Atraumatic
Respiratory: Crackles, Non Labored Respirations and Decreased Breath Sounds
Cardiac: Regular Rhythm and S1/S2
GI: Soft and Nontender
Musculoskeletal: No Clubbing, No Cyanosis and No Edema
Neuro: Awake and Alert
Psych: Calm
Data Reviewed
-
Labs: Labs Reviewed by me and Discussed with Patient
--- NOTE | 2024-03-24 13:17 | CM ---
Pt seen bedside w/ daughter, Hetal. Initial assessment completed. Admitted for SOB, Cough, Nausea, Loss of Appetite.
Pt reports she lives w/ spouse in a 2STH- 1 small step to enter the home. Pt states she is independent w/ ambulating, has a walker but doesn't use it. Hetal stated pt should be using walker and she's been having frequent falls. Pt currently on 4L
O2, does not use O2 at home.
Pt was at [facility] about 5 years ago for rehab, pt had VN/PT in the past, doesn't recall provider.
Address, points of contact and insurance verified
PCP: Dr. Kevin
Pharmacy: [facility]
Plan: Anticipate home. CM will watch for potential O2 needs at d/c.
[2024-03-24 15:04] VITALS: BP 135/60
--- NOTE | 2024-03-24 16:36 | CON.PUL ---
Consultation
Consultation Request
Date/Time Consultation Requested: 03/24/2024
Date/Time Consultation Performed: 03/24/2024
Requesting Provider: Dr. Mejia
Performing Provider: Dr. Mateo Ramirez
Reason for Consultation: Hypoxemic respiratory failure/abnormal CT chest
Medical History
-
History of Present Illness:
83-year-old woman with past medical history significant for heart failure with preserved ejection fraction, paroxysmal atrial fibrillation, hypertension, hypothyroidism who presented to the hospital on 03/23/2024 complaining of 2 weeks worth of
symptoms including cough, shortness of breath and decreased appetite. She reports about 3 weeks ago she and her acquired a viral illness. Her symptoms improve after 1 week. She continued to have significant symptoms.
Mainly cough, increased shortness of breath that has been progressive. Denies any fevers or chills. Cough is productive of yellow sputum without hemoptysis.
Short of breath worse with minimal efforts with prompted to come to the emergency room.
Denies nausea, vomiting or diarrhea. Denies any rash. Denies arthritis.
Due to coughing that was interfering with lifestyle she was not able to take her medications.
-
In the emergency room she was found hypoxemic. 77% on room air. proBNP elevated in the . Leukocytosis noted. Chest x-ray initially with no acute abnormalities but CT chest showed bilateral pneumonia and bronchiolitis.
Negative viral panel
I was consulted on 03/24/2024 for further care
Past Medical History
Past Medical History: Other (See assessment and plan section)
Social History
Tobacco: Former Smoker (Quit smoking 25 years ago. Half a pack a day for 20 years.)
Alcohol: None
Drug: None
Personal:
Living: With Family
Employment: Retired
Family History
Family History: Reviewed & Not Pertinent
Allergies / Home Medications
Allergies
Allergy/AdvReac Type Severity Reaction Status Date / Time
No Known Allergies Allergy Verified 03/23/24 10:54
Home Medications
�Medication �Instructions �Recorded �Confirmed �Last Taken �Type
apixaban 5 mg tablet (Eliquis) 5 mg PO BID ##30 09/12/18 03/23/24 03/22/24 08:00 Rx
amlodipine 5 mg tablet 5 mg PO DAILY 07/16/21 03/23/24 07/15/21 History
furosemide 20 mg tablet (Lasix) 20 mg PO DAILY 07/16/21 03/23/24 07/15/21 History
levothyroxine 25 mcg tablet 25 mcg PO DAILY 07/16/21 03/23/24 07/15/21 History
mirtazapine 7.5 mg tablet 7.5 mg PO HS 07/16/21 03/23/24 07/15/21 History
amiodarone 200 mg tablet (Pacerone) 200 mg PO DAILY 03/23/24 03/23/24 03/21/24 History
metoprolol tartrate 25 mg tablet 25 mg PO BID 03/23/24 03/23/24 03/23/24 09:00 History
Review of Systems
-
History Source: Patient
All other systems: Negative unless noted
Vitals / Labs / Diagnostic Testing
Vital Signs
Temp Pulse Resp BP Pulse Ox
98.3 F 80 21 135/60 97
03/24/24 15:04 03/24/24 15:04 03/24/24 15:04 03/24/24 15:04 03/24/24 15:04
Lab Data
03/24/24 06:36
03/24/24 06:36
Microbiology
03/23/24 13:10 Nasal Swab Respiratory Syncytial Virus Ag - Final
Negative for Respiratory Syncytial Virus.
A false negative result may be obtained with a specimen
collected early in the acute phase. If symptoms persist, a
new specimen should be tested.
03/23/24 11:17 Nasal Swab Influenza Types A & B (TITO) - Final
Negative for Influenza A & B, NAAT
Negative results must be combined with clinical observations
and patient history.
Nucleic Acid Amplification test (NAAT)performed on the
[employer] NOW platform.
Diagnostic Testing:
Physical Exam
-
HEENT: Normocephalic
Cardiovascular: S1/S2
Respiratory: Rales
GI: Soft and Non Distended
Neurology: Awake and Oriented
Skin: Warm
General: Comfortable
Assessment
-
83-year-old woman with past medical history noted, admitted with 3 weeks worth of symptoms. Initially her and her developed a viral infection. Her symptoms persisted and progressed including worsening coughing, worsening shortness of
breath minimal effort. Admitted through the emergency room with hypoxemia. CT chest showed bilateral pneumonia. I was consulted for evaluation on 03/24/2024.
Patient denies any previous history of pulmonary problems.
Acute hypoxemic respiratory failure
CT chest: 03/23/2024 reviewed, no evidence for pulmonary embolism. Pneumonia/bronchiolitis throughout the right lung and lesser degree left lung. 4 mm lingular nodule likely infectious.
Pneumonia: Likely bacterial postviral.
Negative influenza/negative COVID
Negative RSV
Conditions present prior admission:
-
Former smoker quit 25 years ago
Heart failure with preserved ejection fraction
Paroxysmal atrial fibrillation
Hypertension
Hypothyroidism
History of colon cancer
Chronic anemia
History of bowel resection
Denies any prior pulmonary disease.
Assessment and plan:
Clinical picture/symptoms compatible with pneumonia either viral or bacterial.
So far microbiology has been negative
Obtain a sputum culture if possible
Follow blood cultures
Procalcitonin is negative. This could represent a recovering viral pneumonia with postinfectious symptoms.
Leukocytosis resolved, patient is afebrile
-
Currently on Zosyn/doxycycline
Patient denies any aspiration symptoms
She came from home
Eventually will need radiographic follow-up
If continues to improve in the next 24 hours may consider transition to oral antibiotics and complete total of 7 days.
-
Per family, patient has? COPD-no PFTs. Does not follow-up with pulmonary.
She has chronic shortness of breath that has been worse after developing pneumonia.
She has been losing weight over the last several months. She is mostly sedentary
There is no concern for swallowing dysfunction.
-
Continue oxygen supplementation to maintain pulse ox above 90%.
Acapella device encouraged
Symptomatic management
Will add Pulmicort twice a day while in the hospital
Continue nebulizers as needed-
Antitussives
Mucolytics
-
Patient has been losing weight in the outpatient, likely some degree of muscle mass loss contributing to her chronic shortness of breath.
Physical therapy/Occupational Therapy recommended
-
Patient will require pulmonary follow-up in the outpatient to document radiographic clearance
-
DVT prophylaxis on apixaban
-
Dr. Ramirez updated family at the bedside 03/24/2024.
[2024-03-24] MEDS: DUONEB 3 ML INH (19:24)
[2024-03-24] MEDS: PULMICORT 0.5 MG INH (19:24)
[2024-03-24] MEDS: VIBRAMYCIN 100 MG PO (19:54)
[2024-03-24 20:00] VITALS: BP 133/74
[2024-03-24 23:00] VITALS: BP 131/61
[2024-03-25] VITALS (8 sets, daily range): BP systolic 115–143; BP diastolic 62–71; PULSE 78–80; O2SAT 94–95; BMI 17.4
[2024-03-25] MEDS: NSS 1000 IV (03:49)
[2024-03-25] MEDS: ZOSYN 50 IV ×3 (05:16→18:46)
[2024-03-25] MEDS: SYNTHROID 25 MCG PO (05:16)
[2024-03-25 06:49] LABS: Hematocrit 29.9 % (37.0-47.0); Hemoglobin 9.4 g/dL (12.0-16.0); Mean Corp Hgb Conc. 31.4 g/dL (33.0-37.0); Mean Corpuscular Hgb 27.6 pg (27.0-31.0); Mean Corpuscular Volume 87.7 fL (81.0-99.0); Mean Platelet Volume 9.2 fL (7.4-10.4); Platelet Count 344 10^3/uL (130-400); Red Blood Cell Count 3.41 10^6/uL (4.20-5.40); Red Cell Dist. Width 15.1 % (11.5-14.5); White Blood Cell Count 6.8 10^3/uL (4.8-10.8)
[2024-03-25 07:14] LABS: Blood Urea Nitrogen 12 mg/dl (7-17); Calcium 8.3 mg/dl (8.4-10.2); Carbon Dioxide 33 mmol/L (22-30); Chloride 104 mmol/L (98-107); Estimated Creatinine Clearance 36 ml/min; Glucose 102 mg/dl (70-99); Potassium 3.2 mmol/L (3.5-5.1); Sodium 141 mmol/L (135-145); eGFR > 60.00
[2024-03-25] MEDS: PULMICORT 0.5 MG INH ×2 (07:21→19:07)
[2024-03-25] MEDS: DUONEB 3 ML INH ×3 (07:21→19:07)
[2024-03-25 09:02] LABS: Magnesium 1.8 mg/dl (1.6-2.3)
[2024-03-25] MEDS: ELIQUIS 2.5 MG PO ×2 (09:31→20:53)
[2024-03-25] MEDS: KCL 40 MEQ PO (09:31)
[2024-03-25] MEDS: LASIX 20 MG PO (09:31)
[2024-03-25] MEDS: NORVASC 5 MG PO (09:32)
[2024-03-25] MEDS: LOPRESSOR 25 MG PO ×2 (09:32→21:01)
[2024-03-25] MEDS: VIBRAMYCIN 100 MG PO ×2 (09:32→21:00)
[2024-03-25] MEDS: PACERONE 200 MG PO (09:32)
--- NOTE | 2024-03-25 10:53 | W.PN.HOSP.TC ---
Addendum entered and electronically signed by Yo Mejia MD 03/25/24 15:07:
Acute hypoxemic respiratory failure, the lowest documented SpO2 in the 70s, currently on 4 L
Suspect superimposed bacterial infection versus community-acquired
Pro-Stephen neg
IV antibiotics
Sputum culture blood culture
Wean oxygen as tolerated
Aspiration precautions
Pulmonary added Pulmicort
Sepsis white count heart rate lungs
Blood cultures sputum culture
IV antibiotics
Atrial fibrillation
Amiodarone and beta-mike Eliquis
HFpEF, hypovolemic, hold Lasix
Hypokalemic replete as needed
Hypothyroid continue Synthroid
Original Note:
Today's Communication/Plan
-
.
Assessment / Plan
Assessment / Plan
1. Pneumonia (Sepsis POA)
-Aspiration versus superimposed on recent viral infection
-Concern for aspiration on CT; started on IV doxycycline last night; following negative swallow study, transitioned to doxycycline 100 mg p.o. twice daily
-Continue IV Zosyn
-N.p.o., speech and swallow evaluation: Negative for aspiration, started on regular diet with thin liquids with resumption of home oral medications.
-Cautious, hold p.o. if any decline in respiratory status or worsening in chest imaging, swallow team will closely follow
-Oxygen by nasal cannula as needed, wean as tolerated (4 L on day of admission) - Weaned to 2L this AM, SaO2 96%
-DuoNebs as needed, incentive spirometry, Acapella
-Pro-Stephen negative
-Sputum Cx: propharyngeal contamination, will retry if clinically relevant
-Blood Cx: Negative x 24 hours
-Legionella/Strep Urine Ag Negative
-Pulmonology consult today for additional recommendations - appreciate reccs
- Added Pulmicort
2. HFpEF
-Seen by cardiology who do not feel that heart failure is a contributing factor.
-Judicious use of IVF as needed
-Continue home Lasix 20 mg daily
3. Paroxysmal atrial fibrillation
-Continue home meds: Metoprolol, amiodarone, Eliquis
4. Hypertension
-Continue home meds: Norvasc
5. Hypothyroidism
-Continue home meds: Levothyroxine
6. Hypokalemia (POA)
-Replete 40 mEq now
7. Mild DOMINGO
-Creatinine 1.1 on admission
-Follow-up BMP in a.m.
8. Pulmonary nodule
-4 mm nodule in the lingula on CT chest
-Outpatient follow-up, repeat imaging in 12 months
PCP: Dr. Kevin
Regular/SCDs
Anticipated Discharge: 24 - 48 hours
Subjective/Interval History
-
Date of Service: March 25, 2024
Patient seen and examined while resting comfortably in bed. Patient states she feels no worse or no better than yesterday, still feeling short of breath at times, and still with cough.
Objective Data
-
Labs:
Laboratory Results
03/25/24
06:18
WBC 6.8
Hgb 9.4 L
Hct 29.9 L
Plt Count 344
Sodium 141
Potassium 3.2 L
Chloride 104
Carbon Dioxide 33 H
BUN 12
Creatinine 0.8
Glucose 102 H
Calcium 8.3 L
Vital Signs:
Vital Signs
Temp Pulse Resp BP Pulse Ox
98.3 F 78 18 136/63 99
03/25/24 07:42 03/25/24 07:42 03/25/24 07:42 03/25/24 07:42 03/25/24 07:42
I&O
03/24/24 03/25/24 03/26/24
06:59 06:59 06:59
Intake Total 1300 / 1300 2400 / 2400
Output Total 150 / 150 1450 / 1450
Balance 1150 / 1150 950 / 950
Review of Systems
-
History Source: Patient
Constitutional: Reports No Symptoms
Respiratory: Reports Cough and Trouble Breathing
Cardiac: Reports No Symptoms
Abdomen/GI: Reports No Symptoms
Musculoskeletal: Reports No Symptoms
Neuro: Reports No Symptoms
Physical Exam
-
General: No Apparent Distress and Conversant
HEENT: Normocephalic, Atraumatic and Moist Mucous Membranes
Respiratory: Crackles and Decreased Breath Sounds
Cardiac: Regular Rhythm and S1/S2
GI: Soft and Nontender
Musculoskeletal: No Clubbing, No Cyanosis and No Edema
Skin: Warm
Neuro: Awake and Alert
Psych: Calm
Data Reviewed
-
Labs: Labs Reviewed by me and Discussed with Patient
--- NOTE | 2024-03-25 14:31 | W.PN.PUL3 ---
Today's Communication / Plan
-
Continue Pulmicort-would recommend upon discharge
Continue DuoNebs-would recommend upon discharge 3 times a day
When needed nebulizers machine
Hopefully transition to oral antibiotics tomorrow
Home oxygen assessment tomorrow currently on 2 L hopefully can be weaned off
Physical therapy recommending rehab at discharge
From the pulmonary perspective approaching readiness for discharge hopefully in the next 24 to 48 hours.
Assessment
-
83-year-old woman with past medical history noted, admitted with 3 weeks worth of symptoms. Initially her and her developed a viral infection. Her symptoms persisted and progressed including worsening coughing, worsening shortness of
breath minimal effort. Admitted through the emergency room with hypoxemia. CT chest showed bilateral pneumonia. I was consulted for evaluation on 03/24/2024.
Patient denies any previous history of pulmonary problems.
Acute hypoxemic respiratory failure
CT chest: 03/23/2024 reviewed, no evidence for pulmonary embolism. Pneumonia/bronchiolitis throughout the right lung and lesser degree left lung. 4 mm lingular nodule likely infectious.
Pneumonia: Likely bacterial postviral.
Negative influenza/negative COVID
Negative RSV
Conditions present prior admission:
-
Former smoker quit 25 years ago
Heart failure with preserved ejection fraction
Paroxysmal atrial fibrillation
Hypertension
Hypothyroidism
History of colon cancer
Chronic anemia
History of bowel resection
Denies any prior pulmonary disease.
Assessment and plan:
Clinical picture/symptoms compatible with pneumonia either viral or bacterial.
Remains on supplemental oxygen 2 L nasal cannula, pulse ox decreased to 87% with activity.
Difficulty expectorating.
-
So far microbiology has been negative
Sputum culture-poor sample.
Blood cultures negative.
Viral testing negative
Legionella and streptococcal antibody negative
Procalcitonin is negative. This could represent a recovering viral pneumonia with postinfectious symptoms.
Leukocytosis resolved, patient is afebrile
-
Currently on Zosyn/doxycycline-consider transition to oral antibiotics in the next 24 hours. Complete total 7 days.
Patient denies any aspiration symptoms
She came from home
Eventually will need radiographic follow-up, information will be left in the chart for follow-up.
-
Per family, patient has? COPD-no PFTs. Does not follow-up with pulmonary.
She has chronic shortness of continue breath that has been worse after developing pneumonia.
She has been losing weight over the last several months. She is mostly sedentary
There is no concern for swallowing dysfunction, per family.
-
Continue oxygen supplementation to maintain pulse ox above 90%. Currently 2 L with ambulation.
Home oxygen assessment 03/26/2024.
Acapella device encouraged
Symptomatic management
Continue Pulmicort twice a day while in the hospital-May benefit from this in the outpatient setting.
DuoNebs 3 times a day.-May benefit from this in the outpatient setting until symptoms clear.
Antitussives
Mucolytics
-
Patient has been losing weight in the outpatient, likely some degree of muscle mass loss contributing to her chronic shortness of breath.
Physical therapy/Occupational Therapy-noted. Likely will need rehab after discharge.
-
Patient will require pulmonary follow-up in the outpatient to document radiographic clearance
-
DVT prophylaxis on apixaban
-
Dr. Ramirez updated family at the bedside 03/24/2024.
Subjective Data
-
Date of Service:
Date of Service: March 25, 2024
Chief Complaint: Pulmonary Follow Up (Pneumonia/shortness of breath/hypoxemic respiratory failure)
Subjective:
Patient offers no new complaints
Continues to have coughing and difficulty expectorating
Denies hemoptysis
Review of Systems
Cardiopulmonary: Dyspnea, Dyspnea on Exertion, Cough and Sputum Production
Objective Data
Data Reviewed
Vital Signs / I&O / Oxygen:
Vital Signs
Temp Pulse Resp BP Pulse Ox
98.2 F 45 18 133/69 96
03/25/24 11:36 03/25/24 13:35 03/25/24 13:35 03/25/24 11:36 03/25/24 13:35
Intake and Output
03/24/24 03/25/24 03/26/24
06:59 06:59 06:59
Intake Total 1300 / 1300 2400 / 2400
Output Total 150 / 150 1450 / 1450
Balance 1150 / 1150 950 / 950
SaO2 96
Nasal Cannula flow liters per 2
minute
Physical Exam
General: Comfortable
HEENT: Normocephalic
Cardiovascular: S1-S2
Respiratory: Crackles
GI: Soft and Non Distended
Neurology: Awake, Alert and AO x 3
Skin: Warm
Labs/Micro/Reports
Lab Data
03/25/24 06:18
03/25/24 06:18
Microbiology
03/25/24 09:51 Sputum Respiratory Culture - Final
03/25/24 09:51 Sputum Gram Stain - Final
03/23/24 19:08 Urine Legionella Urinary Antigen - Final
Negative for Legionella pneumophila Serogroup 1 antigen.
A negative result does not rule out the possiblity of
Legionella infection due to other serogroups or species of
Legionella. Clinical correlation is recommended.
03/23/24 19:08 Urine Streptococcus pneumoniae Antigen (M - Final
Negative for Streptococcus pneumoniae antigen.
A negative result does not exclude infection with
Streptococcus pneumoniae. Clinical correlation is
recommended.
03/23/24 17:12 Blood/Venous Blood Culture - Preliminary
No Growth in 24 hours- Final report to follow
03/23/24 17:13 Blood/Venous Blood Culture - Preliminary
No Growth in 24 hours- Final report to follow
03/23/24 13:10 Nasal Swab Respiratory Syncytial Virus Ag - Final
Negative for Respiratory Syncytial Virus.
A false negative result may be obtained with a specimen
collected early in the acute phase. If symptoms persist, a
new specimen should be tested.
03/23/24 11:17 Nasal Swab Influenza Types A & B (TITO) - Final
Negative for Influenza A & B, NAAT
Negative results must be combined with clinical observations
and patient history.
Nucleic Acid Amplification test (NAAT)performed on the
[employer] platform.
--- NOTE | 2024-03-25 17:45 | CM ---
Patient with Dx pneumonia, HF. O2 4L. Receiving IV Abx. PT/OT recommend skilled rehab.
Spoke with patient's while he was visiting here today; the patient has been to [facility] twice. He spoke with his and they are undecided if they want SNF again vs HH. Reviewed some local SNFs near [facility] near
where they live and provided [facility] ratings. He requests contact with tomorrow to discuss further. confirms that they do not have home O2 in place.
Plan follow up with patient/ tomorrow re; SNF vs home.
[2024-03-25] MEDS: REMERON 7.5 MG PO (21:00)
[2024-03-26] MEDS: ZOSYN 50 IV ×3 (01:00→12:44)
[2024-03-26 02:54] VITALS: BP 136/62
[2024-03-26] MEDS: DUONEB 3 ML INH ×3 (03:45→12:39)
[2024-03-26] MEDS: SYNTHROID 25 MCG PO (05:07)
[2024-03-26] MEDS: PULMICORT 0.5 MG INH (07:07)
[2024-03-26 07:40] VITALS: BP 145/82
[2024-03-26 08:07] LABS: Hematocrit 31.4 % (37.0-47.0); Hemoglobin 9.8 g/dL (12.0-16.0); Mean Corp Hgb Conc. 31.2 g/dL (33.0-37.0); Mean Corpuscular Volume 86.5 fL (81.0-99.0); Mean Platelet Volume 9.1 fL (7.4-10.4); Platelet Count 368 10^3/uL (130-400); Red Blood Cell Count 3.63 10^6/uL (4.20-5.40); White Blood Cell Count 7.1 10^3/uL (4.8-10.8)
[2024-03-26] MEDS: ELIQUIS 2.5 MG PO (08:22)
[2024-03-26] MEDS: LASIX 20 MG PO (08:22)
[2024-03-26] MEDS: LOPRESSOR 25 MG PO (08:22)
[2024-03-26] MEDS: VIBRAMYCIN 100 MG PO (08:22)
[2024-03-26] MEDS: PACERONE 200 MG PO (08:22)
[2024-03-26] MEDS: NORVASC 5 MG PO (08:22)
[2024-03-26 08:36] LABS: Blood Urea Nitrogen 12 mg/dl (7-17); Carbon Dioxide 33 mmol/L (22-30); Chloride 102 mmol/L (98-107); Estimated Creatinine Clearance 36 ml/min; Glucose 104 mg/dl (70-99); Potassium 3.4 mmol/L (3.5-5.1); Sodium 142 mmol/L (135-145); eGFR > 60.00
--- NOTE | 2024-03-26 10:14 | CM ---
Addendum entered by Yogesh Gonzalez 03/26/24 14:47:
[facility] is able to accept pt, family and pt agreeable.
Hospitalist agreeable for d/c today
Met w/ pt and daughter bedside, reviewed IMM, copy given to pt, copy placed on chart
Ambulance transport, forms on chart
[facility]
Report: [phone]

Plan: [facility] via ambulance due to new O2 needs
Original Note:
CM followed up w/ spouse regarding potential rehab facilities for pt. Spouse identified [facility] as pt has been there a few times in the past and [facility]. CM advised these facilities have been limited on bed availability and encouraged to
explore some additional options. Spouse stated his daughter is researching more facilities.
CM sent referrals to [facility] and [facility], awaiting determination
Plan: SNF; pending bed availability
[2024-03-26 11:59] VITALS: BP 137/73
--- NOTE | 2024-03-26 13:06 | W.PN.HOSP.TC ---
Addendum entered and electronically signed by Yo Mejia MD 03/26/24 14:06:
Transition to oral antibiotics. Complete 7-day course. Wean oxygen as tolerated. Continue weaning at [facility]. Discharged to [facility] today
More than 30 minutes spent in discharge including
Final examination of the patient
Summarizing hospital stay
Instructions for continuing care to all relevant caregivers
Preparation of discharge records, prescriptions, and referral forms
Total time spent (in minutes): 33MIN
Original Note:
Today's Communication/Plan
-
.
Assessment / Plan
Assessment / Plan
1. Pneumonia (Sepsis POA)
-Aspiration versus superimposed on recent viral infection
-Concern for aspiration on CT; started on IV doxycycline last night; following negative swallow study, transitioned to doxycycline 100 mg p.o. twice daily
-Continue IV Zosyn; Transition to oral antibiotics
-N.p.o., speech and swallow evaluation: Negative for aspiration, started on regular diet with thin liquids with resumption of home oral medications.
-Cautious, hold p.o. if any decline in respiratory status or worsening in chest imaging, swallow team will closely follow
-Oxygen by nasal cannula as needed, wean as tolerated (4 L on day of admission) - Weaned to 2L
-DuoNebs as needed, incentive spirometry, Acapella
-Pro-Stephen negative
-Sputum Cx: propharyngeal contamination, will retry if clinically relevant
-Blood Cx: Negative x 24 hours
-Legionella/Strep Urine Ag Negative
-Appreciate pulm recs
-Radiologic follow-up in 2 to 3-weeks
-Home O2 and ambulatory assessment at [facility]
- May benefit from Pulmicort in the outpatient setting
- May benefit from Duonebs in the outpatient setting until symptoms clear.
- Outpatient antitussives and mucolytics
- Discharge to [facility]
2. HFpEF
-Seen by cardiology who do not feel that heart failure is a contributing factor.
-Judicious use of IVF as needed
-Continue home Lasix 20 mg daily
3. Paroxysmal atrial fibrillation
-Continue home meds: Metoprolol, amiodarone, Eliquis
4. Hypertension
-Continue home meds: Norvasc
5. Hypothyroidism
-Continue home meds: Levothyroxine
6. Hypokalemia (POA)
-Replete 40 mEq now
7. Mild DOMINGO
-Creatinine 1.1 on admission
-Follow-up BMP in a.m.
8. Pulmonary nodule
-4 mm nodule in the lingula on CT chest
-Outpatient follow-up, repeat low dose CT imaging in 12 months
PCP: Dr. Kevin
Regular/SCDs
Anticipated Discharge: Today
Subjective/Interval History
-
Date of Service: March 26, 2024
Patient seen and examined while resting comfortably in bed. Patient still has a cough, states that she becomes short of breath when she is exerting herself. Notes that the breathing treatments do relieve her of these symptoms.
Objective Data
-
Labs:
Laboratory Results
03/26/24
07:34
WBC 7.1
Hgb 9.8 L
Hct 31.4 L
Plt Count 368
Sodium 142
Potassium 3.4 L
Chloride 102
Carbon Dioxide 33 H
BUN 12
Creatinine 0.8
Glucose 104 H
Calcium 9.0
Vital Signs:
Vital Signs
Temp Pulse Resp BP Pulse Ox
97.9 F 87 18 137/73 97
03/26/24 11:59 03/26/24 11:59 03/26/24 11:59 03/26/24 11:59 03/26/24 11:59
I&O
03/25/24 03/26/24 03/27/24
06:59 06:59 06:59
Intake Total 2400 / 2400 720 / 720
Output Total 1450 / 1450 900 / 900 175 / 175
Balance 950 / 950 -180 / -180 -175 / -175
Review of Systems
-
History Source: Patient
Constitutional: Reports No Symptoms
Respiratory: Reports Cough
Cardiac: Reports No Symptoms
Abdomen/GI: Reports No Symptoms
Musculoskeletal: Reports No Symptoms
Neuro: Reports No Symptoms
Physical Exam
-
General: No Apparent Distress, Comfortable and Conversant
HEENT: Normocephalic and Atraumatic
Respiratory: Crackles (rare crackles) and Decreased Breath Sounds
Cardiac: Regular Rhythm
GI: Soft and Nontender
Musculoskeletal: No Clubbing, No Cyanosis and No Edema
Skin: Warm
Neuro: Awake, Alert and Oriented
Psych: Calm
Data Reviewed
-
Labs: Labs Reviewed by me and Discussed with Patient
--- NOTE | 2024-03-26 15:01 | W.DCSUMMARY ---
Discharge Summary
Discharge Data
Date of Admission: 03/23/24
Date of Discharge: 03/26/24
-
Pending Results: No
Hospital Course
Mrs. Joseph is an 83-year-old female with a past medical history of heart failure with preserved ejection fraction, paroxysmal atrial fibrillation, hypertension, and hypothyroidism who presented to the emergency department [facility] on
03/23/2024.
HISTORY OF PRESENT ILLNESS
She stated that she had been having 2 weeks of worsening cough, shortness of breath, and decreased appetite (also endorsed not taking oral medications for 1 week). Approximately 3 weeks prior to arrival, she and her had a viral illness.
The 's illness subsided after 1 week, however her illness was persistent. Approximately 1 week prior to arrival, the patient's cough and shortness of breath progressively started worsening. Cough was productive of clear sputum and the
patient endorsed difficulty with doing chores around the house and ambulating longer distances.
ED COURSE
In the emergency department, the patient was found to be in moderate respiratory distress and weak. She was saturating at 77% on room air on arrival. She required 4 L of oxygen by nasal cannula. White blood cell count was 12.5 K. EKG showed a
prolonged QT interval and possible inferolateral ischemia, however troponins were negative. BNP was 2230. COVID/flu/RSV testing was negative. Chest x-ray showed no acute pulmonary abnormalities, however a CT of the chest showed severe pneumonia
and bronchiolitis throughout the right lung and a 4 mm nodule in the lingula. Patient was admitted to [facility] for administration of IV antibiotics.
HOSPITAL COURSE
Given initial concern for aspiration, the patient was started on IV Zosyn and doxycycline. After being seen and cleared by speech, patient was transitioned to oral doxycycline. Oxygen requirements are successfully weaned, and by day of discharge
patient only required 2 L by nasal cannula. Patient was additionally treated with mucolytic's, antitussives, DuoNebs, and Pulmicort. Patient was seen by physical therapy who recommended the patient be discharged to [facility] facility prior
to returning home.
DISCHARGE RECOMMENDATIONS
Oral Antibiotics: Doxycycline 100 mg twice a day and Augmentin 500/125 twice a day, for 4 more days, for a total of 7 days of antibiotics
Continue antitussives, mucolytics, as needed Duo-Nebs, and Pulmicort while rehabilitating at the [facility] facility.
Home O2 assessment at the [facility] facility.
Chest x-ray in 4 to 6 weeks for radiologic follow-up of improvement of pneumonia
4 mm nodule found on the lingula of the left lung on CT chest; repeat low-dose CT imaging in 12 months
Follow-up with primary care provider in approximately 1 week for additional recommendations
Follow-up with industrial methods consultant in 2 to 3 weeks for additional recommendations
Discharge Plan
-
Patient Disposition: Longterm/SNF
Discharge Diagnosis/Procedures: Pneumonia with Sepsis Present on Arrival
Condition: Fair
Diet: Regular
Activity: As tolerated
Others Tests: Follow up with your primary care provider for a follow up chest x-ray in 4-6 weeks.
Referrals:
Nabor Kevin MD [Family Provider] - in less than 1 week
Mateo Mbcride MD [Active] - in two to three weeks (May see PARKING ANALYST)
Prescriptions:
New
doxycycline hyclate 100 mg Capsule
100 mg PO Q12 4 Days Qty: 8 0RF
guaifenesin 100 mg/5 mL Liquid
200 mg PO Q4HPRN PRN (Reason: cough) 7 Days Qty: 473 0RF
budesonide 0.5 mg/2 mL Suspension For Nebulization
0.5 mg inhalation R BID 7 Days Qty: 28 0RF
amoxicillin-pot clavulanate [Augmentin] 500-125 mg tablet
1 tab PO BID Qty: 8 0RF
Continued
Eliquis 5 MG tablet
5 mg PO BID Qty: 30 0RF
amlodipine 5 MG tablet
5 mg PO DAILY
levothyroxine 25 MCG tablet
25 mcg PO DAILY
furosemide [Lasix] 20 MG tablet
20 mg PO DAILY
mirtazapine 7.5 MG tablet
7.5 mg PO HS
metoprolol tartrate 25 mg Tablet
25 mg PO BID
amiodarone [Pacerone] 200 MG tablet
200 mg PO DAILY
Discharge Orders:
Discharge Patient (As Directed); Ordered 03/26/24
Ordered By: Cholo Maurer
Discharge Date and Time
Print Language: SPANISH
[2024-03-26 15:30] VITALS: BP 120/65
== END 2024-03-26 19:24 | DRG 871 ==
LOC: 4 WEST ACU 18:49
PROVIDERS: Registered Nurse; ADMITTING PHYSICIAN Hospitalist; CONSULT PHYSICIAN Internal Medicine Critical Care Medicine; EMERGENCY PHYSICIAN Emergency Medicine; FAMILY PHYSICIAN Internal Medicine; OTHER PHYSICIAN Internal Medicine Cardiovascular Disease
DX: A41.9 Sepsis, unspecified organism (principal); J18.9 Pneumonia, unspecified organism; J69.0 Pneumonitis due to inhalation of food and vomit; J96.01 Acute respiratory failure with hypoxia; I50.32 Chronic diastolic (congestive) heart failure; N17.9 Acute kidney failure, unspecified; I48.0 Paroxysmal atrial fibrillation; I11.0 Hypertensive heart disease with heart failure; E87.6 Hypokalemia; E86.1 Hypovolemia; E03.9 Hypothyroidism, unspecified; R91.1 Solitary pulmonary nodule; D64.9 Anemia, unspecified; Z79.890 Hormone replacement therapy; Z79.899 Other long term (current) drug therapy; Z79.01 Long term (current) use of anticoagulants; Z91.148 Patient's other noncompliance with medication regimen for other reason; Z90.49 Acquired absence of other specified parts of digestive tract; Z85.038 Personal history of other malignant neoplasm of large intestine; Z20.822 Contact with and (suspected) exposure to COVID-19
CPT/HCPCS: 71045; 71275; 80048; 80053; 81003; 81015; 82962; 83605; 83735; 83880; 84145; 84439; 84443; 84484; 85025; 85027; 87040; 87205; 87449; 87502; 87807; 87811; 87899; 90662; 92610; 93005; 94640; 96374; 97163; 97167; 97530; 99285; G0008; Q9967

== ENCOUNTER → 2024-04-02 12:26 | Outpatient (REF) | payer OTHER, MEDICARE, SELFPAY ==
[2024-04-02 13:09] LABS: Hematocrit 31.2 % (37.0-47.0); Hemoglobin 9.7 g/dL (12.0-16.0); Mean Corp Hgb Conc. 31.1 g/dL (33.0-37.0); Mean Corpuscular Hgb 27.1 pg (27.0-31.0); Mean Corpuscular Volume 87.2 fL (81.0-99.0); Mean Platelet Volume 11.3 fL (7.4-10.4); Platelet Count 332 10^3/uL (130-400); Red Blood Cell Count 3.58 10^6/uL (4.20-5.40); Red Cell Dist. Width 15.2 % (11.5-14.5); White Blood Cell Count 15.5 10^3/uL (4.8-10.8)
[2024-04-02 14:03] LABS: Blood Urea Nitrogen 37 mg/dl (7-17); Calcium 8.9 mg/dl (8.4-10.2); Carbon Dioxide 39 mmol/L (22-30); Chloride 93 mmol/L (98-107); Glucose 69 mg/dl (70-99); Magnesium 2.1 mg/dl (1.6-2.3); Potassium 3.6 mmol/L (3.5-5.1); Sodium 138 mmol/L (135-145); eGFR 34.36
== END ==
LOC: OLABN 12:26
PROVIDERS: ATTENDING PHYSICIAN Student in an Organized Health Care Education/Training Program
DX: Z87.19 Personal history of other diseases of the digestive system (principal); Z87.898 Personal history of other specified conditions
CPT/HCPCS: 36415; 80048; 83735; 85027

== ENCOUNTER → 2024-04-02 21:30 | Outpatient (REF) | payer OTHER, MEDICARE, SELFPAY ==
[2024-04-03 09:43] LABS: Urine Albumin 1+ (Neg - Trace); Urine Bilirubin Negative (Negative); Urine Character Clear (Clear); Urine Color Yellow; Urine Glucose Negative (Negative); Urine Ketone Negative (Negative); Urine Leukocyte Negative (Negative); Urine Nitrite Negative (Negative); Urine Occult Blood Negative (Negative); Urine Urobilinogen Negative (Neg - 1+)
[2024-04-03 10:19] LABS: Urine Red Blood Cell 0-2 /HPF (0-2); Urine Squamous Cell 0-2 /LPF (Few); Urine White Cell 0-2 /HPF (0-5)
== END ==
LOC: OLABN 21:30
PROVIDERS: ATTENDING PHYSICIAN Student in an Organized Health Care Education/Training Program
DX: D72.829 Elevated white blood cell count, unspecified (principal); N39.0 Urinary tract infection, site not specified
CPT/HCPCS: 81003; 81015; 87086

== ENCOUNTER 2025-02-05 11:15 | Inpatient (IN) | payer MEDICARE, SELFPAY ==
[2025-02-05] VITALS (11 sets, daily range): BP systolic 131–159; BP diastolic 60–75; BMI 20.9
--- NOTE | 2025-02-05 09:49 | ED.GENMED ---
History of Present Illness
General
Chief Complaint: Cough
Time Seen by Provider: 02/05/25 09:14
History of Present Illness
History of Present Illness:
Patient is a 84-year-old woman with history of A-fib on Eliquis presenting to the emergency department with a cough. Patient states for the past 1-1/2 weeks has had cough congestion runny nose. Her symptoms have has not been getting any better.
No fevers. She is on 1 to 2 L of oxygen at home. This does feel similar to when she had pneumonia earlier this year. No chest pain. No difficulty breathing. No nausea vomiting or diarrhea. No missed doses of Eliquis
Past History
Past History
ED Past Medical History: None
ED Past Surgical History:
Social History
Tobacco: Non-smoker
Alcohol: None
Drug: None
Personal:
Living: with family
Employment: Retired
Phy Exam
Physical Exam
Physical Exam:
GENERAL: in no acute distress
HEENT: normocephalic, extraocular movements intact, moist oral mucosa
NECK: normal inspection
RESPIRATORY: no respiratory distress, crackles in the right lower lobe lobe
CARDIOVASCULAR: regular rate and rhythm
ABDOMEN/: soft, non-distended, non-tender to palpation, no rebound or guarding
EXTREMITIES: non-tender, no edema/swelling
NEUROLOGIC: awake and alert, moves all extremities
SKIN: warm
Course
Orders/Labs/Results
Orders:
Orders
02/05/25 08:56
CR Chest - 2 Views Urgent
Comment:
Reason For Exam: cough
02/05/25 09:48
Basic Metabolic Panel Urgent
COVID-19 Antigen Urgent
Source: Nasal Swab
Complete Blood Count/With Diff Urgent
Influenza A+B Rapid Molecular Urgent
KEMAL Source: Nasal Swab
Specimen Description:
02/05/25 10:14
CefTRIAXone [Rocephin] 1,000 mg IV NOW STA
Doxycycline Hyclate [Vibramycin] 100 mg 0.9% Sodium Chloride 250 ml [Nss] 250 ml IV NOW
Abnormal Lab Results
02/05/25
09:48
RBC 3.83 L 10^6/uL
(4.20-5.40)
Hgb 10.4 L g/dL
(12.0-16.0)
Hct 33.8 L %
(37.0-47.0)
MCHC 30.8 L g/dL
(33.0-37.0)
RDW 17.3 H %
(11.5-14.5)
Abs Immat Gran (auto) 0.1 H 10^3/uL
(0-0.05)
Absolute Neuts (auto) 7.5 H 10^3/uL
(1.4-6.5)
Absolute Lymphs (auto) 0.6 L 10^3/uL
(1.2-3.4)
Absolute Monos (auto) 1.0 H 10^3/uL
(0.1-0.6)
Immature Gran % 0.7 H %
(0-0.5)
Neutrophils % 81.8 H %
(42.2-75.2)
Lymphocytes % 6.4 L %
(20.5-51.1)
Monocytes % 10.6 H %
(1.7-9.3)
02/05/25 09:48
Vital Signs
Initial and Last Documented VS:
Initial Vital Signs
Temp Pulse Resp BP Pulse Ox
98.1 F 95 16 131/65 93
02/05/25 08:42 02/05/25 08:42 02/05/25 08:42 02/05/25 08:42 02/05/25 08:42
Last Documented Vital Signs
Temp Pulse Resp BP Pulse Ox
98.1 F 89 21 131/65 95
02/05/25 08:42 02/05/25 09:00 02/05/25 09:00 02/05/25 08:42 02/05/25 09:51
MDM/Problems Addressed
Differential Diagnosis Includes:
Patient is a 84-year-old woman with history of A-fib on Eliquis presenting to the emergency department with cough and URI symptoms for the past 1-1/2 weeks. On arrival patient is on her home oxygen. Exam does show crackles in the right lower lobe.
Concern for pneumonia versus viral infection. History and exam not consistent with PE or cardiac etiology. Will check blood work and x-ray. Will obtain respiratory swabs.
*Pulse Oximetry
SaO2: 95
Nasal Cannula flow liters per minute: 1.5
Patient hypoxic: yes
*Critical Care Note
Total Time (30-74mins, 75-104mins- exclusive of procedures): Not Applicable
Update Note
Update Note:
X-ray per my interpretation with no sign pneumonia. Will start antibiotics. Official read consistent with possible atypical mycobacterial infection. Patient will benefit from admission for appropriate antibiotics and reassessment especially given
patient's history. Discussed with hospitalist who accepted patient to their service.
ED Attending Note
-
Portions of this chart may have been created with voice recognition software.� Occasional wrong word or��sound alike� substitutions may have occurred due to the inherent limitations of voice recognition software.
Discharge Plan
Departure
Patient Disposition: Admit
Date of Disposition: 02/05/25
Time of Disposition: 10:13
Presentation/result/management discussed w/ accepting MD/DO: Hospitalist
Discharge Problem:
Pneumonia
Prescriptions:
No Action
Eliquis 5 MG tablet
5 mg PO BID Qty: 30 0RF
amlodipine 5 MG tablet
5 mg PO DAILY
levothyroxine 25 MCG tablet
25 mcg PO DAILY
furosemide [Lasix] 20 MG tablet
20 mg PO DAILY
mirtazapine 7.5 MG tablet
7.5 mg PO HS
metoprolol tartrate 25 mg Tablet
25 mg PO BID
amiodarone [Pacerone] 200 MG tablet
200 mg PO DAILY
doxycycline hyclate 100 mg Capsule
100 mg PO Q12 4 Days Qty: 8 0RF
guaifenesin 100 mg/5 mL Liquid
200 mg PO Q4HPRN PRN (Reason: cough) 7 Days Qty: 473 0RF
budesonide 0.5 mg/2 mL Suspension For Nebulization
0.5 mg inhalation R BID 7 Days Qty: 28 0RF
amoxicillin-pot clavulanate [Augmentin] 500-125 mg tablet
1 tab PO BID Qty: 8 0RF
Referrals:
Nabor Kevin MD [Family Provider, Internal Medicine]
Interventions
Interventions:
*Risk Screen - Suicide Last Done: 02/05/25 08:42
*General Assessment Last Done: 02/05/25 08:42
*Neglect/Abuse Screening Last Done: 02/05/25 08:42
[facility] Fall Risk Assessment Tool Last Done: 02/05/25 09:20
ED- Pulmonary Assessment Last Done: 02/05/25 09:19
Discharge Date and Time
Print Language: SYRIAN
[2025-02-05 09:54] LABS: Hematocrit 33.8 % (37.0-47.0); Hemoglobin 10.4 g/dL (12.0-16.0); Mean Corp Hgb Conc. 30.8 g/dL (33.0-37.0); Mean Corpuscular Volume 88.3 fL (81.0-99.0); Nucleated Red Blood Cells % 0 %; Platelet Count 294 10^3/uL (130-400); Red Cell Dist. Width 17.3 % (11.5-14.5)
[2025-02-05 10:21] LABS: COVID-19 Antigen Negative (Negative)
[2025-02-05 10:25] LABS: Blood Urea Nitrogen 19 mg/dl (7-17); Calcium 9.3 mg/dl (8.4-10.2); Carbon Dioxide 36 mmol/L (22-30); Chloride 100 mmol/L (98-107); Glucose 127 mg/dl (70-99); Potassium 3.8 mmol/L (3.5-5.1); Sodium 141 mmol/L (135-145); eGFR > 60.00
--- NOTE | 2025-02-05 10:40 | HPS.HSE ---
Family Physician
-
Family Physician: Nabor Kevin MD
Chief Complaint
-
cough
History of Present Illness
84-year-old female with history of heart failure with preserved ejection fraction, Paroxysmal atrial fibrillation on Eliquis, Hypertension, Hypothyroidism, colon cancer s/p bowel resection presents with productive cough, wheeze worsening for
1-1/2-week. History obtained from patient. She notes that her symptoms are not getting better. She denies fever, chills. She is on 1 to 2 L of oxygen at home all day which she started using since February 2024 after discharge from . She
denies chest pain, shortness of breath, vomiting or diarrhea. She denies sick contacts, recent travel. She is a former smoker, quit 25 years ago. She was admitted to on 02/2024 for for severe pneumonia and bronchiolitis throughout the right
lung and was treated with IV Zosyn and doxycycline.
Upon arrival to the ED, patient is afebrile. Labs reveal, WBC 9200- normal. Chest x-ray showing chronic endobronchial infection and bronchitis in the right middle lobe possibly atypical mycobacterial infection.
Medical History
Past Medical History
Past Medical History: Reports Other (Former smoker quit 25 years ago Heart failure with preserved ejection fraction Paroxysmal atrial fibrillation Hypertension Hypothyroidism History of colon cancer Chronic anemia History of bowel resection)
Past Surgical History: Reports Other (Bowel resection)
Social History
Tobacco: Former Smoker
Alcohol: None
Drug: None
Personal:
Living: Assisted Living
Employment: Retired
Family History
Family History: Not pertinent
Allergies / Home Medications
Allergies reflects when Allergies were last updated in [facility].
Home Medications with original date entered in [facility]
Allergy/Medication List:
Allergies
Allergy/AdvReac Type Severity Reaction Status Date / Time
No Known Allergies Allergy Verified 02/05/25 08:41
Home Medications
amlodipine 5 mg tablet 5 mg PO DAILY Blood Pressure 07/16/21
furosemide 20 mg tablet (Lasix) 20 mg PO DAILY Fluid Retention/Swelling 07/16/21
levothyroxine 25 mcg tablet 25 mcg PO DAILY@06 Thyroid 07/16/21
mirtazapine 7.5 mg tablet 7.5 mg PO HS Sleep 07/16/21
amiodarone 200 mg tablet (Pacerone) 200 mg PO DAILY Arrhythmia 03/23/24
metoprolol tartrate 25 mg tablet 25 mg PO BID Blood Pressure 03/23/24
guaifenesin 100 mg/5 mL oral liquid 200 mg (10 mL) PO Q4HPRN PRN cough 7 days #473 mL 03/26/24
amoxicillin 500 mg-potassium clavulanate 125 mg tablet (Augmentin) 1 tab PO BID Infection 02/05/25
apixaban 5 mg tablet (Eliquis) 5 mg PO BID Blood Clot Prevention/Tx 02/05/25
budesonide 0.5 mg/2 mL suspension for nebulization 0.5 mg inhalation R BID Lung/Breathing Issues 02/05/25
doxycycline hyclate 100 mg capsule 100 mg PO Q12 Infection 02/05/25
Review of Systems
-
History Source: Patient
A 12 point ROS was completed and negative except as noted: Yes
Respiratory: Reports Cough
Physical Exam
Vital Signs
Vital Signs
Temp Pulse Resp BP Pulse Ox
98.1 F 89 21 131/65 95
02/05/25 08:42 02/05/25 09:00 02/05/25 09:00 02/05/25 08:42 02/05/25 09:51
Physical Exam
General: Comfortable and Conversant
HEENT: NormoCephalic and Anicteric
Respiratory: Wheezes (Scattered all over the lung) and Crackles (right base )
Cardiac: S1/S2 and Regular Rhythm
GI: Soft, Non Tender, Non Distended, Normal Bowel Sounds and Other (Ileostomy bag )
Musculoskeletal: No Edema
Skin: Warm and Dry
Neuro: AO x 3
Psych: Calm
Laboratory Results
-
02/05/25 09:48
02/05/25 09:48
Data Reviewed
-
Diagnostic Radiology: Report Reviewed by me and Discussed with Physician
Medical Tests (Nuc Med, Echo, EKG etc): Image Personally Visualized and interpreted and Report Reviewed by me
Lab Data: Labs Reviewed by me and Discussed with Physician
Impression/Plan
-
IMPRESSION:
Acute cough with wheeze
History of HFpEF
Paroxysmal atrial fibrillation
Essential hypertension
Hypothyroidism
History of pulmonary nodule
PLAN:
Acute cough with wheeze
Afebrile with normal white count
Suspect bacterial pneumonia vs aspiration PNA
Chest x-ray reveals chronic endobronchial infection and bronchitis in right middle lobe possibly atypical mycobacterial infection
Check Streptococcus pneumonia and Legionella antigen
Check acid-fast bacilli smear and culture
Consult infectious disease
Start IV Zosyn and doxycycline
Tessalon Perles, Mucinex for cough
DuoNeb and Pulmicort for wheezing
PT/OT/ST
History of HFpEF
Continue metoprolol, Lasix home dose
Monitor weight, I/O
Paroxysmal atrial fibrillation
Normal sinus rhythm
Continue amiodarone and Eliquis
Essential hypertension
Continue amlodipine with holding parameters
Monitor blood pressure
Hypothyroidism
Continue levothyroxine
History of pulmonary nodule
Chest CT 02/2024- 4 mm nodule RL
Regular diet
Full code
Eliquis
[2025-02-05] MEDS: ROCEPHIN 1000 MG IV (10:58)
[2025-02-05] MEDS: VIBRAMYCIN 260 MG IV (10:58)
--- NOTE | 2025-02-05 13:42 | W.PN.UPDATE ---
Update Note
Progress Note Update
I have personally seen and examined the patient, and agree with the plan of care as documented by Franklyn Small M.D.
84-year-old female with a past medical history significant for heart failure with preserved ejection fraction, paroxysmal atrial fibrillation on eliquis, hypertension, hypothyroidism, pulmonary nodule, and pneumonia in February 2024 that was
difficult to treat, presents with a 10-day history of productive cough, rhinorrhea, and poor oral intake. She denies shortness of breath, denies dyspnea with activity, denies chest pain, denies fever. She is nauseous.
In the ER, she was afebrile, white blood cell count normal, there is a left shift. She is negative for COVID, flu. Chest x-ray shows 'CHRONIC ENDOBRONCHIAL INFECTION and bronchitis in the RIGHT MIDDLE LOBE (possibly atypical mycobacterial
infection).
Will treat with IV Zosyn, doxycycline. Check urinary Legionella/strep antigens, sputum Gram stain and culture, acid-fast culture and smear, procalcitonin, consult ID.
All other medical issues as outlined by the resident.
Advance care planning discussed, patient is a DNR.
Total time spent to see the patient on the floor, examine the patient, review data and lab results, discuss treatment plan with patient, nursing staff around 77 minutes.
--- NOTE | 2025-02-05 15:45 | PTCARENOTE ---
Patient arrived from ED on stretcher, walked from stretcher to bed with assist x1. AAOX3 able to make needs known, pleasant during interaction. at bedside, likes to answer questions for patient often. Pt on 2L O2 denies SOB, but did request
several pillows in order to sit up better to help with breathing. Oriented to room and use of call geiger. Denies pain, but states having discomfort recently due to coughing. Call geiger within reach.
--- NOTE | 2025-02-05 16:01 | CON.ID ---
Addendum entered and electronically signed by Bacilio Lima DO 02/06/25 11:54:
Correction:
Impression should read: 'continue zosyn and doxycycline for the present.'
Original Note:
Consultation
-
Date/Time Consultation Requested: 02/05/2025 1518
Date/Time Consultation Performed: 02/05/2025 1601
Requesting Provider: Dr. Ly
Performing Provider: Dr. Lima
Reason for Consultation: Pneumonia
Chief Complaint / Past History
History of Present Illness
Emilee Joseph is an 84-year-old female with a significant past medical history of colon cancer being evaluated at the request of Dr. Esposito in regards to pneumonia. History is obtained from chart review, along with patient interview.
Additional history was obtained from the patient's was at the bedside.
Patient has a significant past medical history of many years of tobacco use although quit 25 years ago. She was admitted to [facility] in February of this year with cough and shortness of breath over 2 weeks at that time she was found to
have pneumonia with bronchiolitis throughout the right lung. She was discharged to home after 1 weeks hospitalization and did well in the intervening time. She presents back to the emergency room today following the development of progressive
cough which began about 2 weeks ago, along with significant sneezing. She denies any shortness of breath. She reports scant sputum which is characterized as yellow. She denies any chest pain. She admits to nausea, but no vomiting.
In the ER she was not found to be febrile or have a leukocytosis, but CT scan imaging reveals significant infiltrates. Infectious Diseases asked to comment upon further antimicrobial therapy.
Past History
Additional Past Medical History:
Paroxysmal A-fib (on Eliquis)
CHF
HTN
Hypothyroidism
Hx colon CA
Additional Past Surgical History:
Bowel resection
Allergy History:
No Known Allergies Allergy (Verified 02/05/25 08:41)
Medications Reviewed: Yes
Current Antibiotics:
Doxycycline
Zosyn 3.375 gm IV q.6 hours
Ceftriaxone in the ER
Social History
Tobacco: Former Smoker
Alcohol: None
Drug: None
Personal:
Living: With Family
Employment: Retired
Family History
Family History: Not Pertinent
Review of Systems
Vital Signs
Temp Pulse Resp BP Pulse Ox
98.1 F 96 20 151/67 94
02/05/25 08:42 02/05/25 15:00 02/05/25 15:00 02/05/25 15:00 02/05/25 15:00
Physical Exam
Physical Exam
Constitutional: Comfortable, Chronically Ill and Other (Frail in appearance)
Head: Normocephalic
Eyes: Pupils Equal, Pupils Round, No Conjunctival Hemorrhage and Sclera Anicteric
Oral: No Thrush and No Ulcers
Cardiovascular: Regular Rate and S1/S2; Negative S3/S4
Pulmonary: Rhonchi (Scattered), Coarse and Non Labored
Gastrointestinal: Soft, Non Tender and Non Distended
Extremities: Negative Edema, Cyanosis or Erythema
Skin: Warm and Dry; Negative Rash or Jaundice
Neurological: Awake and Alert
Psychological: Calm
Lab / Diagnostic Study Results
02/05/25 09:48
02/05/25 09:48
Abs Immat Gran (auto) 0.1 10^3/uL (0-0.05) H 02/05/25 09:48
Absolute Neuts (auto) 7.5 10^3/uL (1.4-6.5) H 02/05/25 09:48
Absolute Lymphs (auto) 0.6 10^3/uL (1.2-3.4) L 02/05/25 09:48
Absolute Monos (auto) 1.0 10^3/uL (0.1-0.6) H 02/05/25 09:48
Absolute Basos (auto) 0.0 10^3/uL (0-0.2) 02/05/25 09:48
Immature Gran % 0.7 % (0-0.5) H 02/05/25 09:48
Neutrophils % 81.8 % (42.2-75.2) H 02/05/25 09:48
Lymphocytes % 6.4 % (20.5-51.1) L 02/05/25 09:48
Monocytes % 10.6 % (1.7-9.3) H 02/05/25 09:48
Eosinophils % 0.1 % (0-6) 02/05/25 09:48
Basophils % 0.4 % (0-2) 02/05/25 09:48
Microbiology Results
Micro:
02/05/25 09:48 Influenza Types A & B (TITO) - Final
Nasal Swab Negative for Influenza A & B, NAAT
Negative results must be combined with clinical observations
and patient history.
Nucleic Acid Amplification test (NAAT)performed on the
[employer] platform.
Imaging:
CXR (02/05/2025): chronic endobronchial infection and bronchitis in the right middle lobe (possible atypical mycobacterial infection). Mildly decreased bilateral lung volumes. Severe calcific atherosclerotic plaque in the coronary arteries and
aorta. Please see full dictation for additional detail.
Assessment / Plan
Progressive cough
Bronchitis
Suspected exacerbation COPD (given marked tobacco history)
Possible mycobacterial infection
Paroxysmal A-fib (on Eliquis)
CHF
HTN
Hypothyroidism
Hx colon CA
Recommendations:
Continue with ceftriaxone and doxycycline for the present.
Check sputum culture (previously ordered)
Agree with AFB stain and culture to assess for mycobacterial disease.
May consider Pulmonary evaluation. May eventually need PFTs
Check chest CT.
Await Legionella and pneumococcal urinary antigens.
Further recommendations as additional data is returned.
Care Review
Plan reviewed with: Physician (Resident)
[2025-02-05] MEDS: TESSALON PERLES 100 MG PO ×2 (17:58→21:16)
[2025-02-05] MEDS: ZOSYN 50 IV ×2 (17:58→21:17)
[2025-02-05] MEDS: HYCODAN SYRUP 5 ML PO (17:58)
--- NOTE | 2025-02-05 18:14 | PTCARENOTE ---
Pt with one episode of a 2-3 run of SVT during shift HR 145, Pt asymptomatic, MD made aware. Tele strip in chart.
[2025-02-05] MEDS: ANESTHETIC LOZENGE 1 LOZENGE PO (18:21)
[2025-02-05] MEDS: ELIQUIS 2.5 MG PO (21:16)
[2025-02-05] MEDS: MUCINEX 600 MG PO (21:16)
[2025-02-05] MEDS: VIBRAMYCIN 100 MG PO (21:16)
[2025-02-05] MEDS: LOPRESSOR 25 MG PO (21:17)
[2025-02-05] MEDS: REMERON 7.5 MG PO (21:17)
[2025-02-06] VITALS (8 sets, daily range): BP systolic 118–145; BP diastolic 52–78; PULSE 75–78; O2SAT 98; BMI 20.6
[2025-02-06] MEDS: ZOSYN 50 IV ×4 (05:13→21:11)
[2025-02-06] MEDS: SYNTHROID 25 MCG PO (05:14)
[2025-02-06 06:18] LABS: Hematocrit 30.8 % (37.0-47.0); Hemoglobin 9.4 g/dL (12.0-16.0); Mean Corp Hgb Conc. 30.5 g/dL (33.0-37.0); Mean Corpuscular Volume 90.1 fL (81.0-99.0); Nucleated Red Blood Cells % 0 %; Platelet Count 274 10^3/uL (130-400); Red Cell Dist. Width 17.4 % (11.5-14.5)
[2025-02-06 06:49] LABS: Blood Urea Nitrogen 14 mg/dl (7-17); Calcium 8.9 mg/dl (8.4-10.2); Carbon Dioxide 36 mmol/L (22-30); Chloride 101 mmol/L (98-107); Estimated Creatinine Clearance 40 ml/min; Glucose 104 mg/dl (70-99); Potassium 3.6 mmol/L (3.5-5.1); Sodium 141 mmol/L (135-145); eGFR > 60.00
[2025-02-06] MEDS: MUCINEX 600 MG PO ×2 (09:01→21:11)
[2025-02-06] MEDS: ELIQUIS 2.5 MG PO ×2 (09:01→21:11)
[2025-02-06] MEDS: VIBRAMYCIN 100 MG PO ×2 (09:01→21:11)
[2025-02-06] MEDS: PACERONE 100 MG PO (09:02)
[2025-02-06] MEDS: LOPRESSOR 25 MG PO ×2 (09:03→21:11)
[2025-02-06] MEDS: TESSALON PERLES 100 MG PO ×3 (09:04→21:11)
[2025-02-06] MEDS: NORVASC 5 MG PO (09:17)
--- NOTE | 2025-02-06 09:45 | W.PN.HOSP.TC ---
Today's Communication/Plan
-
see bold
Assessment / Plan
Assessment / Plan
HPI: 84-year-old female with a past medical history significant for heart failure with preserved ejection fraction, paroxysmal atrial fibrillation on eliquis, hypertension, hypothyroidism, pulmonary nodule, and pneumonia in February 2024 that was
difficult to treat, presents with a 10-day history of productive cough, rhinorrhea, and poor oral intake. She denies shortness of breath, denies dyspnea with activity, denies chest pain, denies fever. She is nauseous. In the ER, she was afebrile,
white blood cell count normal, there is a left shift. She is negative for COVID, flu. Chest x-ray shows 'CHRONIC ENDOBRONCHIAL INFECTION and bronchitis in the RIGHT MIDDLE LOBE (possibly atypical mycobacterial infection).
#Cough
#Chest x-ray concerning for pneumonia
Chest x-ray shows 'CHRONIC ENDOBRONCHIAL INFECTION and bronchitis in the RIGHT MIDDLE LOBE (possibly atypical mycobacterial infection)
COVID/flu negative, urine Legionella/strep antigens negative
Continue Zosyn/doxycycline (zosyn to cover for aspiration), follow-up on sputum culture and Gram stain, follow-up on acid-fast bacilli culture
ID following, follow-up when chest CT results, may need pulmonology consult depending on results
SPL consulted to rule out aspiration
Trend fever and white count
#Chronic hypoxic respiratory failure
She usually requires 1-1.5 L at baseline
#History of HFpEF
#Mitral valve prolapse
#Moderate to severe mitral regurgitation
#Moderate to severe tricuspid regurgitation
Continue metoprolol, Lasix
#Paroxysmal atrial fibrillation
Continue Lopressor, amiodarone and Eliquis
#Essential hypertension
Continue amlodipine with holding parameters
Monitor blood pressure
#Hypothyroidism
Continue levothyroxine
#History of pulmonary nodule
Chest CT 02/2024- 4 mm nodule RL
DVT prophylaxis�Eliquis
DNR
Total time spent to see the patient on the floor, examine the patient, review data and lab results, discuss treatment plan with patient, nursing staff around 40 minutes.
Physical Exam
General: No acute distress
HEENT: Normocephalic, Atraumatic, EOMI, MMM
Respiratory: Coarse breath sounds with scattered rhonchi
Cardiac: Normal S1/S2, Regular Rate and Rhythm
GI: Soft, Nontender, Nondistended, Normal Bowel Sounds
Extremities: No Clubbing, Cyanosis, or Edema
Neuro: Nonfocal/Grossly Intact
Psych: Calm, Cooperative
Anticipated Discharge: 24 - 48 hours
Subjective/Interval History
-
Date of Service: February 06, 2025
Patient denies shortness of breath. She continues to cough, unchanged from prior. Denies chest pain. No fever, no vomiting.
Objective Data
-
Labs:
Laboratory Results
02/06/25
06:09
WBC 6.1
Hgb 9.4 L
Hct 30.8 L
Plt Count 274
Sodium 141
Potassium 3.6
Chloride 101
Carbon Dioxide 36 H
BUN 14
Creatinine 0.8
Glucose 104 H
Calcium 8.9
Vital Signs:
Vital Signs
Temp Pulse Resp BP Pulse Ox
98.2 F 89 19 133/70 93
02/06/25 07:05 02/06/25 07:05 02/06/25 07:05 02/06/25 07:05 02/06/25 07:05
I&O
02/05/25 02/06/25 02/07/25
06:59 06:59 06:59
Intake Total 100 / 100
Balance 100 / 100
--- NOTE | 2025-02-06 12:59 | CM ---
Initial assessment completed with pt at bedside.
Pt is an 84yr old female admitted with Pneumonia.
Pt at baseline lives at [facility]. There, she is indep with mobility and toileting using a wheelchair or walker, and receives assistance with ADLs.
Pt is on chronic O2 and additional equipment includes a raised toilet seat, tub bench, and grab bars within the bathroom.
Pt has a that lives in [place] who supports with medication coal picker from [facility] and then [facility] manages.
CM was consulted for Advanced Directive, though pt says she has a Living Will, and is a DNR.
Pt has been to [facility] in the past and has had VN but can't recall who.
Pt was seen by PT who recommends Home Health.
PCP; Nabor Kevin
Pharm; [facility]
PLAN; Return to [facility]
--- NOTE | 2025-02-06 14:40 | PTOTSP ---
ST Acute Care Evaluation
Pt currently presents with clinical signs and symptoms of suspected pharyngoesophageal dysphagia characterized by timely and delayed onset of weak, congested coughing s/p ingestion of majority of both thin and thick consistencies in both small and
large quantities that were suspicious for airway invasion, as well as persistent eructation s/p ingestion of liquids and reports of frequent coughing in the AM upon awakening that dissipates as the day progresses.
Findings and recommendations for VFSS were relayed to pt, pt's , and pt's daughter at bedside. Despite extensive education provided, pt and pt's adamantly denied pt having a swallowing disorder, pt communicated that she did not want
to have any further testing done, and pt's tried to provide other explanations for pt's current presentation. SPEECH AND HEARING DIRECTOR explained the risks associated with continuing to consume oral intake without further work-up and encouraged pt to take some
time to think about her options further. SPEECH AND HEARING DIRECTOR also re-assured pt and pt's family that [facility] would respect their ultimate decision.
As it stands, pt has communicated that they would not like to pursue an instrumental swallow study, which is consistent with a more comfort/palliative-care GOC. Given this information, recommendations are as follows:
- Continue with regular solids, thin liquids, meds as tolerated with general aspiration and reflux precautions.
- Palliative care consultation to fully iron-out GOC.
- SPEECH AND HEARING DIRECTOR will f/u to ensure no further services/support are needed.
If GOC change to restorative:
- Change diet to NPO except meds whole in puree.
- ARHP - seldom ice chips with supervision after oral care.
- Video fluoroscopic swallow study (VFSS) with SPEECH AND HEARING DIRECTOR for more objective information regarding pt's current swallowing function. SPEECH AND HEARING DIRECTOR recommendations to follow.
--- NOTE | 2025-02-06 14:44 | W.PN.ID1 ---
Date of Service
Date of Service: February 06, 2025
Today's Communication
Continue antibiotics.
Assessment / Plan
Progressive cough
Bronchitis
Suspected exacerbation COPD (given marked tobacco history)
Possible mycobacterial infection
Paroxysmal A-fib (on Eliquis)
CHF
HTN
Hypothyroidism
Hx colon CA
Recommendations:
Continue with zosyn and doxycycline for the present.
Await sputum culture.
Agree with AFB stain and culture to assess for mycobacterial disease.
May consider Pulmonary evaluation. May eventually need PFTs
Await Legionella and pneumococcal urinary antigens.
Further recommendations as additional data is returned.
Chief Complaint
-: Pneumonia
Subjective / Review of Systems
Patient seen and examined. Reports ongoing cough
Vital Signs / Physical Exam
Vital Signs
Vital Signs
Temp Pulse Resp BP Pulse Ox
98.2 F 71 19 118/52 99
02/06/25 11:12 02/06/25 11:12 02/06/25 11:12 02/06/25 11:12 02/06/25 11:12
Physical Exam
Constitutional: Comfortable, Chronically Ill and Non-toxic
Cardiovascular: S1/S2; Negative S3/S4
Pulmonary: Rhonchi, Coarse and Non Labored
Gastrointestinal: Soft, Non Tender and Non Distended
Objective Data
Lab Data
Lab Results
02/06/25 06:09
02/06/25 06:09
Estimated Creat Clear 40 ml/min 02/06/25 06:09
Most recent labs reviewed.
Micro Results:
02/05/25 09:40 Acid Fast Bacilli Smear - Pending
Sputum Acid Fast Bacilli Culture - Pending
02/05/25 09:40 Respiratory Culture - Pending
Sputum Gram Stain - Pending
02/05/25 09:48 Influenza Types A & B (TITO) - Final
Nasal Swab Negative for Influenza A & B, NAAT
Negative results must be combined with clinical observations
and patient history.
Nucleic Acid Amplification test (NAAT)performed on the
[employer] platform.
Imaging:
CXR (02/05/2025): chronic endobronchial infection and bronchitis in the right middle lobe (possible atypical mycobacterial infection). Mildly decreased bilateral lung volumes. Severe calcific atherosclerotic plaque in the coronary arteries and
aorta. Please see full dictation for additional detail.
[2025-02-06] MEDS: PULMICORT INH (19:39)
[2025-02-06] MEDS: REMERON 7.5 MG PO (21:11)
[2025-02-06] MEDS: HYCODAN SYRUP 5 ML PO (23:42)
[2025-02-07] MEDS: ANESTHETIC LOZENGE 1 LOZENGE PO (00:13)
[2025-02-07 03:35] VITALS: BP 126/63
[2025-02-07] MEDS: SYNTHROID 25 MCG PO (05:19)
[2025-02-07] MEDS: ZOSYN 50 IV ×4 (05:19→22:31)
[2025-02-07] MEDS: HYCODAN SYRUP 5 ML PO ×4 (05:23→22:32)
[2025-02-07 07:33] VITALS: BP 142/67
[2025-02-07] MEDS: PULMICORT 0.5 MG INH ×2 (07:39→20:39)
[2025-02-07] MEDS: ZOFRAN 4 MG IV (08:58)
--- NOTE | 2025-02-07 09:16 | CON.PUL ---
Consultation
Consultation Request
Date/Time Consultation Requested: 02/07/25
Date/Time Consultation Performed: 02/07/25
Performing Provider: Larry
Reason for Consultation: SOB/PNA
Medical History
-
History of Present Illness:
Patient is an 84-year-old female with previous history of paroxysmal A-fib on Eliquis, heart failure with preserved ejection fraction, hypertension, colon cancer s/p resection presenting with productive cough, wheezing, shortness of breath for the
past 1-1/2 weeks. She noticed that her symptoms are not getting better. She was discharged on home oxygen of 1 to 2 L following her discharge from [facility] in February 2024. She does not follow with outpatient pulmonary. Former smoker,
25 pack years, quit 25 years ago.
Never had PFTs.
CT obtained indicating improvement compared to previous CT in February. She is on IV antibiotics since admission but does not note any improvement in her complaints. Sputum cultures are sent and have been negative.
Past Medical History
Past Medical History: Other (see list below)
Social History
Tobacco: Former Smoker
Alcohol: None
Drug: None
Allergies / Home Medications
Allergies
Allergy/AdvReac Type Severity Reaction Status Date / Time
No Known Allergies Allergy Verified 02/05/25 08:41
Home Medications
�Medication �Instructions �Recorded �Confirmed �Last Taken �Type
amlodipine 5 mg tablet 5 mg PO DAILY Blood Pressure 07/16/21 02/05/25 02/04/25 History
furosemide 20 mg tablet (Lasix) 20 mg PO DAILY Fluid 07/16/21 02/05/25 02/04/25 History
Retention/Swelling
levothyroxine 25 mcg tablet 25 mcg PO DAILY@06 Thyroid 07/16/21 02/05/25 02/04/25 History
mirtazapine 7.5 mg tablet 7.5 mg PO HS Sleep 07/16/21 02/05/25 02/04/25 History
amiodarone 200 mg tablet (Pacerone) 100 mg PO DAILY Arrhythmia 03/23/24 02/05/25 02/04/25 History
metoprolol tartrate 25 mg tablet 25 mg PO BID Blood Pressure 03/23/24 02/05/25 02/04/25 History
guaifenesin 100 mg/5 mL oral liquid 200 mg (10 mL) PO Q4HPRN PRN cough 03/26/24 02/05/25 02/04/25 Rx
7 days #473 mL
apixaban 5 mg tablet (Eliquis) 5 mg PO BID Blood Clot 02/05/25 02/05/25 02/04/25 History
Prevention/Tx
ondansetron 4 mg disintegrating 4 mg PO Q8HPRN PRN nausea 02/05/25 02/05/25 02/02/25 History
tablet
Review of Systems
-
History Source: Patient
All other systems: Negative unless noted
Vitals / Labs / Diagnostic Testing
Vital Signs
Temp Pulse Resp BP Pulse Ox
97.7 F 76 16 142/67 97
02/07/25 07:33 02/07/25 07:43 02/07/25 07:43 02/07/25 07:33 02/07/25 07:43
Lab Data
02/06/25 06:09
02/06/25 06:09
Microbiology
02/05/25 09:40 Sputum Gram Stain - Preliminary
02/05/25 09:48 Nasal Swab Influenza Types A & B (TITO) - Final
Negative for Influenza A & B, NAAT
Negative results must be combined with clinical observations
and patient history.
Nucleic Acid Amplification test (NAAT)performed on the
[employer] platform.
Diagnostic Testing:
Physical Exam
-
HEENT: Normocephalic, Anicteric and Moist Mucous Membranes
Cardiovascular: S1/S2 and Regular Rhythm
Respiratory: Clear and Non-Labored Respirations
GI: Soft and Non Distended
Neurology: Awake, Alert, Oriented and No Motor Deficits
Skin: Warm, Dry and Good Color
General: Comfortable, Poor Appetite and Other (thin appearing)
Assessment
-
Patient is an 84-year-old female with previous history of paroxysmal A-fib on Eliquis, heart failure with preserved ejection fraction, hypertension, colon cancer s/p resection presenting with productive cough, wheezing, shortness of breath for the
past 1-1/2 weeks. She noticed that her symptoms are not getting better. She was discharged on home oxygen of 1 to 2 L following her discharge from [facility] in February 2024. She does not follow with outpatient pulmonary. Former smoker,
25 pack years, quit 25 years ago. Never had PFTs. CT obtained indicating improvement compared to previous CT in February. She is on IV antibiotics since admission but does not note any improvement in her complaints. Sputum cultures are sent and
have been negative. We are consulted for evaluation.
Acute on chronic shortness of breath
Chronic hypoxemic respiratory failure
Cough, wheezing, productive mucus
Abnormal CT
Suspect possible AECOPD
Conditions present prior to admission
Former smoker, 25 PYs
Major depressive disorder/Anxiety
Anemia
Sigmoidoscopy, Dr. Sánchez 09/02/18
Sigmoid colon cancer with bleeding abscess. 09/03/18
C-sections x3
[facility] Adm 08/28-09/12/18 [facility] Anemia,GI Bleed
Plan
Has a history of home oxygen use of 1 to 2 L following last admission
She was instructed to follow-up as an outpatient but did not see a pharmacovigilance scientist
Will need to reevaluate need for O2 again
Prior history of lung disease is NOT noted but certainly she is at risk given her smoking history
She has [id number] usage, never had PFTs
Suspect patient has chronic obstructive pulmonary disease
We will obtain PFTs while inpatient to confirm
CXR/CT obtained indicating possible small tree-in-bud opacities but overall improved compared to prior CT in February
I am not sure that pneumonia is an active issue. She has had PCT in past that were negative
She has no other signs and symptoms, no leukocytosis or fever on admission
ID was consulted and she was placed on antibiotics--she does not feel improvement since admission as well
Sputum culture has also been obtained and negative
I would stop antibiotics and observe off
She has history of heart failure with preserved EF, noted to have pleural effusion on CT imaging
On my review this is minimal
Will obtain proBNP for consideration
Prior ECHO results are reviewed indicating stable function
Metabolic alkalosis noted, will obtain baseline ABG
Risk factors assessed for underlying sleep disordered breathing also noted, recommend outpatient PSG/sleep evaluation
Smoking history noted-quit 25 years ago
Denies family history of lung disease
Will need outpatient pulmonary evaluation in our office for PFTs and 6MWT
Reviewed with patient
We will follow
Diagnostic Data
Chest X-Ray:
CT Scan: CHEST 02/06/25- 1. SEVERE CHRONIC BRONCHITIS throughout both lungs with multifocal peripheral endobronchial infection with endobronchial impaction and small peripheral pulmonary nodules (overall decreased from 03/23/2024).
2. Small left and minimal right pleural effusions.
3. Chronic granulomatous disease infection.
4. Severe calcific atherosclerotic plaque in the coronary arteries and thoracic aorta.
5. Multilevel osteoporotic insufficiency fractures in the thoracic and lumbar spine with a severely exaggerated thoracic kyphosis.
6. ACUTE SUPERIOR ENDPLATE FRACTURE of L2.
7. Severe multilevel cervical discogenic degenerative disease.
CHEST 03/23/24- 1. No evidence of pulmonary embolism.
2. Severe pneumonia/bronchiolitis throughout the right lung and to a lesser degree the left lung, likely related to a component of aspiration.
3. A 4 mm lingula nodule is likely of infectious/inflammatory etiology. If the patient is considered high risk, an optional follow-up noncontrast CT chest can be obtained in 12 months.
Echo: 09/22/23- Normal left ventricular size, wall thickness and systolic function. No regional wall motion abnormalities are seen. LV ejection fraction is 60-65% by visual assessment. Diastolic function indeterminate. Thickened mitral valve
leaflets. Mitral annular calcification. Prolapse of the posterior mitral leaflet was present. Moderate to severe mitral regurgitation. The mitral regurgitation was eccentric anteriorly directed which may have underestimated the severity. Indexed
LA volume is mildly abnormal (35-41 mL/m2). Trileaflet aortic valve. Aortic sclerosis without stenosis. Mild aortic regurgitation. Tricuspid valve opens normally. Moderate to severe tricuspid regurgitation. Estimated pulmonary artery pressure of
42 mmHg. Assuming a right atrial pressure of 3 mmHg. Mildly dilated right atrium. Normal right ventricular size and function. Since echocardiogram 09/12/2022, there is no significant change.
PFT's:
Reports and relevant images were personally reviewed.
Total time spent on this consultation __75__ minutes which includes review of history, physical exam, medications, laboratory data, personal review of imaging, extensive review of outpatient records, discussion with care team and respiratory therapy.
[2025-02-07] MEDS: PACERONE 100 MG PO (09:57)
[2025-02-07] MEDS: MUCINEX 600 MG PO ×2 (09:57→20:14)
[2025-02-07] MEDS: VIBRAMYCIN 100 MG PO ×2 (09:57→20:14)
[2025-02-07] MEDS: LOPRESSOR 25 MG PO ×2 (09:57→20:14)
[2025-02-07] MEDS: ELIQUIS 2.5 MG PO ×2 (09:58→20:14)
[2025-02-07] MEDS: NORVASC 5 MG PO (09:58)
[2025-02-07] MEDS: TESSALON PERLES 100 MG PO ×3 (09:58→22:31)
[2025-02-07 11:00] VITALS: BP 134/64
--- NOTE | 2025-02-07 13:27 | W.PN.ID1 ---
Date of Service
Date of Service: February 07, 2025
Today's Communication
Continue antibiotics.
Assessment / Plan
Progressive cough
Bronchitis
Suspected exacerbation COPD (given marked tobacco history)
Possible mycobacterial infection
Paroxysmal A-fib (on Eliquis)
CHF
HTN
Hypothyroidism
Hx colon CA
Recommendations:
Continue with zosyn and doxycycline for the present.
Await sputum culture.
Agree with AFB stain and culture to assess for mycobacterial disease.
Await pulmonary consultation.
Further recommendations as additional data is returned.
Chief Complaint
-: Pneumonia
Subjective / Review of Systems
Patient seen and examined still with some cough, but denies any shortness of breath. Denies fevers or chills. Denies any abdominal pain. notes that patient has not had a bowel movement several days.
Vital Signs / Physical Exam
Vital Signs
Vital Signs
Temp Pulse Resp BP Pulse Ox
97.7 F 71 16 134/64 97
02/07/25 11:00 02/07/25 11:00 02/07/25 11:00 02/07/25 11:00 02/07/25 11:00
Physical Exam
Constitutional: No Acute Distress, Comfortable, Chronically Ill and Non-toxic
Cardiovascular: S1/S2; Negative S3/S4
Pulmonary: Rhonchi, Coarse and Non Labored
Gastrointestinal: Soft, Non Tender and Non Distended
Neurological: Awake and Alert
Psychological: Calm
Objective Data
Lab Data
Lab Results
02/06/25 06:09
02/06/25 06:09
Estimated Creat Clear 40 ml/min 02/06/25 06:09
Most recent labs reviewed.
Micro Results:
02/05/25 09:40 Respiratory Culture - Preliminary
Sputum Usual Respiratory Marylin
Gram Stain - Preliminary
02/05/25 09:40 Acid Fast Bacilli Smear - Pending
Sputum Acid Fast Bacilli Culture - Pending
02/05/25 09:48 Influenza Types A & B (TITO) - Final
Nasal Swab Negative for Influenza A & B, NAAT
Negative results must be combined with clinical observations
and patient history.
Nucleic Acid Amplification test (NAAT)performed on the
[employer] platform.
Imaging:
02/06/2025 CT chest without contrast: severe chronic bronchitis throughout both lungs with multi peripheral endobronchial impaction and small peripheral pulmonary nodule, decreased from 03/23/2024. Minimal right pleural effusions. 'Chronic gross
disease'
CXR (02/05/2025): chronic endobronchial infection and bronchitis in the right middle lobe (possible atypical mycobacterial infection). Mildly decreased bilateral lung volumes. Severe calcific atherosclerotic plaque in the coronary arteries and
aorta. Please see full dictation for additional detail.
--- NOTE | 2025-02-07 13:33 | W.PN.HOSP.TC ---
Today's Communication/Plan
-
wean O2 to baseline as able
Abx per ID; f/u Pulm recs. f/u cultures
PT/OT
Assessment / Plan
Assessment / Plan
Assessment:
Cough
Chest x-ray concerning for pneumonia
- Chest x-ray shows 'CHRONIC ENDOBRONCHIAL INFECTION and bronchitis in the RIGHT MIDDLE LOBE (possibly atypical mycobacterial infection)
- CT: SEVERE CHRONIC BRONCHITIS throughout both lungs with multifocal peripheral endobronchial infection with endobronchial impaction and small peripheral pulmonary nodules (overall decreased from 03/23/2024).
- COVID/flu negative, urine Legionella/strep antigens negative
- continue Zosyn/Doxy per ID. F/u cultures
- follow labs
Chronic hypoxic respiratory failure
- She usually requires 1-1.5 L at baseline
History of chronic HFpEF
Mitral valve prolapse
Moderate to severe mitral regurgitation
Moderate to severe tricuspid regurgitation
- continue metoprolol, Lasix
Paroxysmal atrial fibrillation
- continue Lopressor, amiodarone and Eliquis
Essential hypertension
- continue amlodipine with holding parameters
- Monitor blood pressure
Hypothyroidism
- continue levothyroxine
History of pulmonary nodule
- Chest CT 02/2024- 4 mm nodule RL
ACUTE SUPERIOR ENDPLATE FRACTURE of L2
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
Severe multilevel cervical discogenic degenerative disease
- pain control - Tylenol + lidocaine patches
- PT/OT
DVT ppx: Eliquis
Code: DNR/DNI
Anticipated Discharge: > 48 hours
Subjective/Interval History
-
Date of Service: February 07, 2025
reports cough. denies fever/chills, denies SOB.
Objective Data
-
Vital Signs:
Vital Signs
Temp Pulse Resp BP Pulse Ox
97.7 F 71 16 134/64 97
02/07/25 11:00 02/07/25 11:00 02/07/25 11:00 02/07/25 11:00 02/07/25 11:00
I&O
02/06/25 02/07/25 02/08/25
06:59 06:59 06:59
Intake Total 100 / 100 1130 / 1130 50 / 50
Balance 100 / 100 1130 / 1130 50 / 50
Physical Exam
-
General: No Apparent Distress
HEENT: Normocephalic and Atraumatic
Respiratory: Rhonchi and Decreased Breath Sounds
Cardiac: Regular Rhythm and S1/S2
GI: Soft
Genito-urinary: No Costovertebral Tender
Neuro: AO x 3
Psych: Calm
Data Reviewed
-
Total Time Spent with Patient (in minutes): 42
Labs: Labs Reviewed by me
[2025-02-07 15:09] VITALS: BP 134/64
[2025-02-07] MEDS: DUONEB 3 ML INH (16:06)
[2025-02-07 16:57] LABS: B.E. 9.1 mmol/L; HCO3 35.7 mmol/L (21-28); O2 Saturation % 97.5 % (94-98); PCO2 59 mmHg (32-35); PO2 84 mmHg (83-108)
[2025-02-07 19:00] VITALS: BP 122/75
[2025-02-07] MEDS: SENOKOT-S 1 TABLET PO (20:14)
--- NOTE | 2025-02-07 21:35 | PTCARENOTE ---
Pt. wants to brush teeth in the morning.
[2025-02-07] MEDS: REMERON 7.5 MG PO (22:31)
[2025-02-07 23:00] VITALS: BP 105/49
[2025-02-08 03:00] VITALS: BP 125/53
[2025-02-08] MEDS: SYNTHROID 25 MCG PO (05:18)
[2025-02-08] MEDS: ZOSYN 50 IV ×2 (05:18→10:16)
[2025-02-08 05:44] LABS: Hematocrit 29.6 % (37.0-47.0); Hemoglobin 8.8 g/dL (12.0-16.0); Mean Corp Hgb Conc. 29.7 g/dL (33.0-37.0); Mean Corpuscular Volume 88.6 fL (81.0-99.0); Platelet Count 297 10^3/uL (130-400); Red Cell Dist. Width 17.1 % (11.5-14.5)
[2025-02-08 06:04] LABS: Blood Urea Nitrogen 15 mg/dl (7-17); Calcium 9.0 mg/dl (8.4-10.2); Carbon Dioxide 37 mmol/L (22-30); Chloride 100 mmol/L (98-107); Estimated Creatinine Clearance 32 ml/min; Glucose 92 mg/dl (70-99); Potassium 3.2 mmol/L (3.5-5.1); Sodium 140 mmol/L (135-145); eGFR 55.55
[2025-02-08 07:00] VITALS: BP 124/56
[2025-02-08] MEDS: PULMICORT 0.5 MG INH (07:43)
[2025-02-08] MEDS: VIBRAMYCIN 100 MG PO (08:30)
[2025-02-08] MEDS: LOPRESSOR 25 MG PO ×2 (08:30→21:11)
[2025-02-08] MEDS: SENOKOT-S 1 TABLET PO ×2 (08:31→21:11)
[2025-02-08] MEDS: PACERONE 100 MG PO (08:31)
[2025-02-08] MEDS: MUCINEX 600 MG PO ×2 (08:31→21:09)
[2025-02-08] MEDS: ELIQUIS 2.5 MG PO ×2 (08:32→21:11)
[2025-02-08] MEDS: TESSALON PERLES 100 MG PO ×3 (08:33→21:09)
[2025-02-08] MEDS: NORVASC 5 MG PO (08:33)
--- NOTE | 2025-02-08 09:20 | W.PN.PUL3 ---
Today's Communication / Plan
-
PFT obtained and reviewed with patient indicating severe COPD, likely the cause of her complaints
I have started her on inhalers to continue at discharge, COPD education
Will need outpatient follow-up, we will place our contact in the chart
PT OT, out of bed
Would stop antibiotics, cultures thus far negative
Home O2 eval
Discharge planning per team
Assessment
-
Patient is an 84-year-old female with previous history of paroxysmal A-fib on Eliquis, heart failure with preserved ejection fraction, hypertension, colon cancer s/p resection presenting with productive cough, wheezing, shortness of breath for the
past 1-1/2 weeks. She noticed that her symptoms are not getting better. She was discharged on home oxygen of 1 to 2 L following her discharge from [facility] in February 2024. She does not follow with outpatient pulmonary. Former smoker,
25 pack years, quit 25 years ago. Never had PFTs. CT obtained indicating improvement compared to previous CT in February. She is on IV antibiotics since admission but does not note any improvement in her complaints. Sputum cultures are sent and
have been negative. We are consulted for evaluation.
Acute on chronic shortness of breath
Chronic hypoxemic respiratory failure
Cough, wheezing, productive mucus
Abnormal CT
Suspect possible AECOPD
Severe COPD on PFTs
Conditions present prior to admission
Former smoker, 25 PYs
Major depressive disorder/Anxiety
Anemia
Sigmoidoscopy, Dr. Sánchez 09/02/18
Sigmoid colon cancer with bleeding abscess. 09/03/18
C-sections x3
DH Adm 08/28-09/12/18 DH Anemia,GI Bleed
Plan
Has a history of home oxygen use of 1 to 2 L following last admission
She was instructed to follow-up as an outpatient but did not see a wood shop teacher
Will need to reevaluate need for O2 again
Home O2 eval
Prior history of lung disease is NOT noted but certainly she is at risk given her smoking history
She has [id number] usage, never had PFTs
Suspect patient has chronic obstructive pulmonary disease
We will obtain PFTs while inpatient to confirm--severe COPD noted, discussed results with patient
Initiated on inhalers
COPD education
CXR/CT obtained indicating possible small tree-in-bud opacities but overall improved compared to prior CT in February
I am not sure that pneumonia is an active issue. She has had PCT in past that were negative
She has no other signs and symptoms, no leukocytosis or fever on admission
ID was consulted and she was placed on antibiotics--she does not feel improvement since admission as well
Sputum culture has also been obtained and negative
I would stop antibiotics and observe off
She has history of heart failure with preserved EF, noted to have pleural effusion on CT imaging
On my review this is minimal
Will obtain proBNP for consideration
Prior ECHO results are reviewed indicating stable function
Metabolic alkalosis noted, will obtain baseline ABG showing chronic CO retention
Risk factors assessed for underlying sleep disordered breathing also noted, recommend outpatient PSG/sleep evaluation
Smoking history noted-quit 25 years ago
Denies family history of lung disease
Will need outpatient pulmonary evaluation in our office for PFTs and 6MWT
Reviewed with patient
Discharge planning per team w/ OP FU
Diagnostic Data
Chest X-Ray:
CT Scan: CHEST 02/06/25- 1. SEVERE CHRONIC BRONCHITIS throughout both lungs with multifocal peripheral endobronchial infection with endobronchial impaction and small peripheral pulmonary nodules (overall decreased from 03/23/2024).
2. Small left and minimal right pleural effusions.
3. Chronic granulomatous disease infection.
4. Severe calcific atherosclerotic plaque in the coronary arteries and thoracic aorta.
5. Multilevel osteoporotic insufficiency fractures in the thoracic and lumbar spine with a severely exaggerated thoracic kyphosis.
6. ACUTE SUPERIOR ENDPLATE FRACTURE of L2.
7. Severe multilevel cervical discogenic degenerative disease.
CHEST 03/23/24- 1. No evidence of pulmonary embolism.
2. Severe pneumonia/bronchiolitis throughout the right lung and to a lesser degree the left lung, likely related to a component of aspiration.
3. A 4 mm lingula nodule is likely of infectious/inflammatory etiology. If the patient is considered high risk, an optional follow-up noncontrast CT chest can be obtained in 12 months.
Echo: 09/22/23- Normal left ventricular size, wall thickness and systolic function. No regional wall motion abnormalities are seen. LV ejection fraction is 60-65% by visual assessment. Diastolic function indeterminate. Thickened mitral valve
leaflets. Mitral annular calcification. Prolapse of the posterior mitral leaflet was present. Moderate to severe mitral regurgitation. The mitral regurgitation was eccentric anteriorly directed which may have underestimated the severity. Indexed
LA volume is mildly abnormal (35-41 mL/m2). Trileaflet aortic valve. Aortic sclerosis without stenosis. Mild aortic regurgitation. Tricuspid valve opens normally. Moderate to severe tricuspid regurgitation. Estimated pulmonary artery pressure of
42 mmHg. Assuming a right atrial pressure of 3 mmHg. Mildly dilated right atrium. Normal right ventricular size and function. Since echocardiogram 09/12/2022, there is no significant change.
PFT's: FEV1 0.54L 33%, FVC 0.85L 39%, ratio 64. Post FEV1 0.55L 34%, + BD response in FVC-- severe obstruction
Reports and relevant images were personally reviewed.
Total time spent on this consultation __51__ minutes which includes review of history, physical exam, medications, laboratory data, personal review of imaging, extensive review of outpatient records, discussion with care team and respiratory therapy.
Subjective Data
-
Date of Service:
Date of Service: February 08, 2025
Chief Complaint: Pulmonary Follow Up
Subjective:
No new complaints, unsure if she has further SOB
Not OOB
Objective Data
Data Reviewed
Vital Signs / I&O / Oxygen:
Vital Signs
Temp Pulse Resp BP Pulse Ox
98.4 F 72 16 124/56 91
02/08/25 07:00 02/08/25 08:30 02/08/25 07:48 02/08/25 08:30 02/08/25 07:48
Intake and Output
02/07/25 02/08/25 02/09/25
06:59 06:59 06:59
Intake Total 1130 / 1130 1080 / 1080
Balance 1130 / 1130 1080 / 1080
SaO2 91
Nasal Cannula flow liters per 2
minute
Labs/Micro/Reports
Lab Data
02/08/25 05:13
02/08/25 05:13
Laboratory Results
02/07/25
16:48
pH 7.39
pCO2 59 H
pO2 84
HCO3 35.7 H
O2 Delivery Level
Microbiology
02/05/25 09:40 Sputum Respiratory Culture - Preliminary
Usual Respiratory Marylin
02/05/25 09:40 Sputum Gram Stain - Preliminary
02/05/25 09:48 Nasal Swab Influenza Types A & B (TIOT) - Final
Negative for Influenza A & B, NAAT
Negative results must be combined with clinical observations
and patient history.
Nucleic Acid Amplification test (NAAT)performed on the
[employer] platform.
[2025-02-08] MEDS: HYCODAN SYRUP 5 ML PO (10:16)
--- NOTE | 2025-02-08 10:54 | W.PN.HOSP.TC ---
Today's Communication/Plan
-
start COPD inhalers
follow pulm recs
home O2 eval in AM
Abx; follow ID recs
Assessment / Plan
Assessment / Plan
Assessment:
Cough
Chest x-ray concerning for pneumonia
- Chest x-ray shows 'CHRONIC ENDOBRONCHIAL INFECTION and bronchitis in the RIGHT MIDDLE LOBE (possibly atypical mycobacterial infection)
- CT: SEVERE CHRONIC BRONCHITIS throughout both lungs with multifocal peripheral endobronchial infection with endobronchial impaction and small peripheral pulmonary nodules (overall decreased from 03/23/2024).
- COVID/flu negative, urine Legionella/strep antigens negative
- continue Zosyn/Doxy per ID. F/u cultures
- follow labs
Chronic hypoxic respiratory failure
COPD
- PFTs: pending reports, verbally per RT suggestive of COPD
- started on Albuterol prn + Spiriva/Advair
- She usually requires 1-1.5 L at baseline
- home O2 assessment 02/09
History of chronic HFpEF
Mitral valve prolapse
Moderate to severe mitral regurgitation
Moderate to severe tricuspid regurgitation
- continue metoprolol, Lasix
Paroxysmal atrial fibrillation
- continue Lopressor, amiodarone and Eliquis
Essential hypertension
- continue amlodipine with holding parameters
- Monitor blood pressure
Hypothyroidism
- continue levothyroxine
History of pulmonary nodule
- Chest CT 02/2024- 4 mm nodule RL
ACUTE SUPERIOR ENDPLATE FRACTURE of L2
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
Severe multilevel cervical discogenic degenerative disease
- pain control - Tylenol + lidocaine patches
- PT/OT- home/VN
DVT ppx: Eliquis
Code: DNR/DNI
Anticipated Discharge: 24 - 48 hours
Subjective/Interval History
-
Date of Service: February 08, 2025
sitting in chair, breathing stable
hesistant about COPD inhalers but more reassured after education from RT and myself
Objective Data
-
Labs:
Laboratory Results
02/08/25
05:13
WBC 6.5
Hgb 8.8 L
Hct 29.6 L
Plt Count 297
Sodium 140
Potassium 3.2 L
Chloride 100
Carbon Dioxide 37 H
BUN 15
Creatinine 1.0
Glucose 92
Calcium 9.0
Vital Signs:
Vital Signs
Temp Pulse Resp BP Pulse Ox
98.4 F 72 16 124/56 91
02/08/25 07:00 02/08/25 08:30 02/08/25 07:48 02/08/25 08:30 02/08/25 09:37
I&O
02/07/25 02/08/25 02/09/25
06:59 06:59 06:59
Intake Total 1130 / 1130 1080 / 1080
Balance 1130 / 1130 1080 / 1080
Physical Exam
-
General: No Apparent Distress
HEENT: Normocephalic and Atraumatic
Respiratory: Decreased Breath Sounds; Negative Wheezes or Rales
Cardiac: Regular Rhythm and S1/S2
Genito-urinary: No Costovertebral Tender
Neuro: AO x 3
Psych: Calm
Data Reviewed
-
Total Time Spent with Patient (in minutes): 42
Labs: Labs Reviewed by me
[2025-02-08] MEDS: ADVAIR HFA 230/21 MCG INHALER INH (10:55)
[2025-02-08] MEDS: SPIRIVA RESPIMAT 2.5 MCG 2 PUFF INH (10:55)
[2025-02-08 11:00] VITALS: BP 132/67
[2025-02-08] MEDS: KCL 40 MEQ PO (11:09)
--- NOTE | 2025-02-08 14:08 | W.PN.ID1 ---
Date of Service
Date of Service: February 08, 2025
Today's Communication
Discontinue further antibiotics and observe.
Assessment / Plan
Progressive cough
Bronchitis
Exacerbation COPD
Possible mycobacterial infection
Paroxysmal A-fib (on Eliquis)
CHF
HTN
Hypothyroidism
Hx colon CA
Recommendations:
Sputum culture no growth.
AFB stain and culture pending; final report in 6 weeks.
Agree with discontinuation of further antibiotics given findings on PFTs and culture.
Patient to follow-up with Pulmonary in the outpatient setting.
����������������������������������������������������������
Chief Complaint
-: Pneumonia
Subjective / Review of Systems
Review of Systems: No Fever and No Chills
Vital Signs / Physical Exam
Vital Signs
Vital Signs
Temp Pulse Resp BP Pulse Ox
98.3 F 79 16 132/67 97
02/08/25 11:00 02/08/25 11:08 02/08/25 11:08 02/08/25 11:00 02/08/25 11:08
Physical Exam
Constitutional: No Acute Distress, Comfortable, Chronically Ill and Non-toxic
Cardiovascular: S1/S2; Negative S3/S4
Pulmonary: Coarse and Non Labored
Gastrointestinal: Soft, Non Tender and Non Distended
Neurological: Awake and Alert
Psychological: Calm
Objective Data
Lab Data
Lab Results
02/08/25 05:13
02/08/25 05:13
Estimated Creat Clear 32 ml/min 02/08/25 05:13
Most recent labs reviewed.
Micro Results:
02/05/25 09:40 Respiratory Culture - Final
Sputum Usual Respiratory Marylin
Gram Stain - Final
02/07/25 14:58 Acid Fast Bacilli Smear - Pending
Sputum Acid Fast Bacilli Culture - Pending
02/05/25 09:40 Acid Fast Bacilli Smear - Pending
Sputum Acid Fast Bacilli Culture - Pending
02/05/25 09:48 Influenza Types A & B (TITO) - Final
Nasal Swab Negative for Influenza A & B, NAAT
Negative results must be combined with clinical observations
and patient history.
Nucleic Acid Amplification test (NAAT)performed on the
[employer] platform.
Imaging:
02/06/2025 CT chest without contrast: severe chronic bronchitis throughout both lungs with multi peripheral endobronchial impaction and small peripheral pulmonary nodule, decreased from 03/23/2024. Minimal right pleural effusions. 'Chronic gross
disease'
CXR (02/05/2025): chronic endobronchial infection and bronchitis in the right middle lobe (possible atypical mycobacterial infection). Mildly decreased bilateral lung volumes. Severe calcific atherosclerotic plaque in the coronary arteries and
aorta. Please see full dictation for additional detail.
[2025-02-08 15:11] VITALS: BP 136/66
--- NOTE | 2025-02-08 17:26 | CM ---
CM continues to follow for discharge planning. VN is recommended. CM needs to determine which VN is preferred.
[2025-02-08] MEDS: ADVAIR HFA 230/21 MCG INHALER 2 PUFF INH (20:01)
[2025-02-08] MEDS: REMERON 7.5 MG PO (21:15)
[2025-02-08 23:22] VITALS: BP 116/52
[2025-02-09] MEDS: HYCODAN SYRUP 5 ML PO (00:16)
[2025-02-09] MEDS: SYNTHROID 25 MCG PO (05:51)
[2025-02-09 05:53] LABS: Hematocrit 29.4 % (37.0-47.0); Hemoglobin 9.0 g/dL (12.0-16.0); Mean Corp Hgb Conc. 30.6 g/dL (33.0-37.0); Mean Corpuscular Volume 88.8 fL (81.0-99.0); Platelet Count 310 10^3/uL (130-400); Red Cell Dist. Width 17.2 % (11.5-14.5)
[2025-02-09 06:16] LABS: Blood Urea Nitrogen 15 mg/dl (7-17); Calcium 8.8 mg/dl (8.4-10.2); Carbon Dioxide 36 mmol/L (22-30); Chloride 101 mmol/L (98-107); Estimated Creatinine Clearance 35 ml/min; Glucose 91 mg/dl (70-99); Potassium 4.2 mmol/L (3.5-5.1); Sodium 140 mmol/L (135-145); eGFR > 60.00
[2025-02-09 07:28] VITALS: BP 126/57
[2025-02-09] MEDS: SPIRIVA RESPIMAT 2.5 MCG 2 PUFF INH (07:40)
[2025-02-09] MEDS: ADVAIR HFA 230/21 MCG INHALER 2 PUFF INH (07:40)
[2025-02-09] MEDS: NORVASC 5 MG PO (07:44)
[2025-02-09] MEDS: TESSALON PERLES 100 MG PO (07:44)
[2025-02-09] MEDS: ELIQUIS 2.5 MG PO (07:44)
[2025-02-09] MEDS: LASIX 20 MG PO (07:45)
[2025-02-09] MEDS: SENOKOT-S PO (07:45)
[2025-02-09] MEDS: PACERONE 100 MG PO (07:45)
[2025-02-09] MEDS: LOPRESSOR 25 MG PO (07:45)
[2025-02-09] MEDS: MUCINEX 600 MG PO (07:45)
--- NOTE | 2025-02-09 10:43 | W.PN.HOSP.TC ---
Today's Communication/Plan
-
dc to home/VN Today
Assessment / Plan
Assessment / Plan
Assessment:
Cough
Chest x-ray concerning for pneumonia
- Chest x-ray shows 'CHRONIC ENDOBRONCHIAL INFECTION and bronchitis in the RIGHT MIDDLE LOBE (possibly atypical mycobacterial infection)
- CT: SEVERE CHRONIC BRONCHITIS throughout both lungs with multifocal peripheral endobronchial infection with endobronchial impaction and small peripheral pulmonary nodules (overall decreased from 03/23/2024).
- COVID/flu negative, urine Legionella/strep antigens negative
- d/w pulm and ID felt symptoms related to COPD. Abx stopped.
- follow labs
Chronic hypoxic respiratory failure
COPD
- PFTs: pending reports, verbally per RT suggestive of COPD
- started on Albuterol prn + Spiriva/Advair
- She usually requires 1-1.5 L at baseline; will increase to 2L per home O2 eval 02/08
History of chronic HFpEF
Mitral valve prolapse
Moderate to severe mitral regurgitation
Moderate to severe tricuspid regurgitation
- continue metoprolol, Lasix
Paroxysmal atrial fibrillation
- continue Lopressor, amiodarone and Eliquis
Essential hypertension
- continue amlodipine with holding parameters
- Monitor blood pressure
Hypothyroidism
- continue levothyroxine
History of pulmonary nodule
- Chest CT 02/2024- 4 mm nodule RL
ACUTE SUPERIOR ENDPLATE FRACTURE of L2
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
Severe multilevel cervical discogenic degenerative disease
- pain control - Tylenol + lidocaine patches
- PT/OT- home/VN
DVT ppx: Eliquis
Code: DNR/DNI
More than 30 minutes spent in discharge including
Final examination of the patient
Summarizing hospital stay
Instructions for continuing care to all relevant caregivers
Preparation of discharge records, prescriptions, and referral forms
Total time spent (in minutes):41
Anticipated Discharge: Today
Subjective/Interval History
-
Date of Service: February 09, 2025
resting comfortably, no complaints at present
Objective Data
-
Labs:
Laboratory Results
02/09/25
05:19
WBC 6.0
Hgb 9.0 L
Hct 29.4 L
Plt Count 310
Sodium 140
Potassium 4.2 D
Chloride 101
Carbon Dioxide 36 H
BUN 15
Creatinine 0.9
Glucose 91
Calcium 8.8
Vital Signs:
Vital Signs
Temp Pulse Resp BP Pulse Ox
98.3 F 77 16 126/57 94
02/09/25 07:28 02/09/25 07:44 02/09/25 07:43 02/09/25 07:44 02/09/25 08:17
I&O
02/08/25 02/09/25 02/10/25
06:59 06:59 06:59
Intake Total 1080 / 1080 620 / 620
Balance 1080 / 1080 620 / 620
Physical Exam
-
General: No Apparent Distress
HEENT: Normocephalic and Atraumatic
Respiratory: Negative Wheezes
Cardiac: Regular Rhythm and S1/S2
GI: Soft
Genito-urinary: No Costovertebral Tender
Neuro: AO x 3
Psych: Calm
Data Reviewed
-
Total Time Spent with Patient (in minutes): 42
Labs: Labs Reviewed by me
--- NOTE | 2025-02-09 10:55 | W.DCSUMMARY ---
Discharge Summary
Discharge Data
Date of Admission: 02/05/25
Date of Discharge: 02/09/25
-
Pending Results: No
Hospital Course
84 y/o F, hx of heart failure with preserved ejection fraction, Paroxysmal atrial fibrillation on Eliquis, Hypertension, Hypothyroidism, colon cancer s/p bowel resection presents with productive cough, wheeze worsening for 1-1/2-week - patient is
on chronic home O2. CT imaging showed SEVERE CHRONIC BRONCHITIS throughout both lungs with multifocal peripheral endobronchial infection with endobronchial impaction and small peripheral pulmonary nodules concerning for COPD rather than pneumonia.
Patient was initially on Abx but stopped after discussion with ID and pulmonary. PFTs at bedside confirmed COPD and patient was started on inhalers. Repeat home O2 evaluation confirmed patient requires 2L baseline. She was discharged home with VN on
02/09.
Discharge Plan
-
Patient Disposition: Home with Home Care
Discharge Diagnosis/Procedures: COPD, no pneumonia, chronic hypoxic respiratory failure
Condition: Fair
Diet: Regular
Activity: As tolerated
Bathing Restrictions: None
Other Services: VN
Activity Restrictions/Additional Instructions:
use 1.5L to 2L with rest and probably 2L with exertion
try and maintain O2 usage to target saturation of 90-95%. Do not need sats >95% because lungs will convert and trap this excess O2 as CO2 which will cause you to be tired/sleepy.
Referrals:
Nabor Kevin MD [Family Provider, Internal Medicine] - in one week
Joseline Juarez DO [Active, Pulmonary Medicine] - in three to four weeks
Referral Note: PFT
Prescriptions:
New
fluticasone propion-salmeterol 230-21 mcg/actuation Hfa Aerosol Inhaler
2 puff inhalation R BID Qty: 12 0RF
Spiriva Respimat 2.5 mcg/actuation Mist
2 puff inhalation R DAILY Qty: 4 0RF
albuterol sulfate 90 mcg/actuation Hfa Aerosol Inhaler
2 puff inhalation R QID PRN (Reason: shortness of breath or wheezing) Qty: 8.5 0RF
acetaminophen 325 mg Tablet
650 mg PO Q4HPRN PRN (Reason: if temp > 101 F) Qty: 100 0RF
guaifenesin 600 mg Tablet Extended Release 12hr
600 mg PO Q12 Qty: 30 0RF
ipratropium-albuterol 0.5 mg-3 mg(2.5 mg base)/3 mL solution for nebulization
3 ml inhalation Q6H PRN (Reason: shortness of breath) Qty: 90 0RF
Eliquis 5 mg tablet
5 mg PO BID Qty: 60 0RF
Continued
amlodipine 5 MG tablet
5 mg PO DAILY
levothyroxine 25 MCG tablet
25 mcg PO DAILY@06
furosemide [Lasix] 20 MG tablet
20 mg PO DAILY
mirtazapine 7.5 MG tablet
7.5 mg PO HS
metoprolol tartrate 25 mg Tablet
25 mg PO BID
amiodarone [Pacerone] 200 MG tablet
100 mg PO DAILY
guaifenesin 100 mg/5 mL Liquid
200 mg PO Q4HPRN PRN (Reason: cough) 7 Days Qty: 473 0RF
ondansetron 4 mg tablet,disintegrating
4 mg PO Q8HPRN PRN (Reason: nausea)
Discontinued
Eliquis 5 MG tablet
5 mg PO BID
Discharge Orders:
Discharge Patient (As Directed); Ordered 02/09/25
Ordered By: Lillian Lehman
Discharge Date and Time
Print Language: NEPALI
--- NOTE | 2025-02-09 11:06 | W.PN.ID1 ---
Date of Service
Date of Service: February 09, 2025
Today's Communication
Monitor off antibiotics.
Assessment / Plan
Progressive cough
Bronchitis
Exacerbation COPD
Possible mycobacterial infection
Paroxysmal A-fib (on Eliquis)
CHF
HTN
Hypothyroidism
Hx colon CA
Recommendations:
Sputum culture no growth.
AFB stain and culture pending; final report in 6 weeks.
Antibiotics discontinued yesterday.
Patient to follow-up with Pulmonary in the outpatient setting.
����������������������������������������������������������
Chief Complaint
-: Pneumonia
Subjective / Review of Systems
Review of Systems: No Fever, No Chills, Cough and No Sputum Production
Vital Signs / Physical Exam
Vital Signs
Vital Signs
Temp Pulse Resp BP Pulse Ox
98.3 F 73 16 126/57 96
02/09/25 07:28 02/09/25 11:05 02/09/25 11:05 02/09/25 07:44 02/09/25 11:05
Physical Exam
Constitutional: No Acute Distress, Comfortable, Chronically Ill and Non-toxic
Cardiovascular: S1/S2; Negative S3/S4
Pulmonary: Coarse and Non Labored
Gastrointestinal: Soft, Non Tender and Non Distended
Neurological: Awake and Alert
Psychological: Calm
Objective Data
Lab Data
Lab Results
02/09/25 05:19
02/09/25 05:19
Estimated Creat Clear 35 ml/min 02/09/25 05:19
Most recent labs reviewed.
Micro Results:
02/05/25 09:40 Respiratory Culture - Final
Sputum Usual Respiratory Marylin
Gram Stain - Final
02/07/25 14:58 Acid Fast Bacilli Smear - Pending
Sputum Acid Fast Bacilli Culture - Pending
02/05/25 09:40 Acid Fast Bacilli Smear - Pending
Sputum Acid Fast Bacilli Culture - Pending
02/05/25 09:48 Influenza Types A & B (TITO) - Final
Nasal Swab Negative for Influenza A & B, NAAT
Negative results must be combined with clinical observations
and patient history.
Nucleic Acid Amplification test (NAAT)performed on the
[employer] platform.
Imaging:
02/06/2025 CT chest without contrast: severe chronic bronchitis throughout both lungs with multi peripheral endobronchial impaction and small peripheral pulmonary nodule, decreased from 03/23/2024. Minimal right pleural effusions. 'Chronic gross
disease'
CXR (02/05/2025): chronic endobronchial infection and bronchitis in the right middle lobe (possible atypical mycobacterial infection). Mildly decreased bilateral lung volumes. Severe calcific atherosclerotic plaque in the coronary arteries and
aorta. Please see full dictation for additional detail.
Care Review
Plan reviewed with: Physician (Hospitalist)
--- NOTE | 2025-02-09 12:31 | CM ---
Emilee is cleared for discharge today. Her will bring her clothes in and drive her home to [facility].
VN recommended, however Emilee declines having VN. CM made her aware that she could contact her primary care doctor if she changes her mind.
Plan: Patient will return to [facility] today. Her will drive her home.
--- NOTE | 2025-02-09 12:40 | CM ---
CM met with Emilee, who is being discharged today; IMM reviewed and she gave verbal consent to the IMM, as she is not able to write. VN recommended and discussed. Emilee declined VN, as she had it in the past and does not feel it would be
helpful.
Plan: Emilee's will bring clothing for her to change into and will transport home via car.
[2025-02-09 12:57] VITALS: BP 143/74
[2025-02-09] MEDS: ANESTHETIC LOZENGE 1 LOZENGE PO (12:57)
== END 2025-02-09 13:54 | disposition home health service (06) | DRG 867 ==
LOC: 3 WEST ACU 11:15
PROVIDERS: Student in an Organized Health Care Education/Training Program; ADMITTING PHYSICIAN Family Medicine; ATTENDING PHYSICIAN Internal Medicine; CONSULT PHYSICIAN Internal Medicine Infectious Disease; EMERGENCY PHYSICIAN Student in an Organized Health Care Education/Training Program; FAMILY PHYSICIAN Internal Medicine; OTHER PHYSICIAN Internal Medicine
DX: A31.9 Mycobacterial infection, unspecified (principal); J18.9 Pneumonia, unspecified organism; I50.32 Chronic diastolic (congestive) heart failure; J96.11 Chronic respiratory failure with hypoxia; I48.0 Paroxysmal atrial fibrillation; Z79.01 Long term (current) use of anticoagulants; Z11.52 Encounter for screening for COVID-19; Z87.891 Personal history of nicotine dependence; I11.0 Hypertensive heart disease with heart failure; E03.9 Hypothyroidism, unspecified
CPT/HCPCS: 36600; 71046; 71250; 80048; 82805; 83880; 85025; 85027; 87070; 87116; 87205; 87502; 87811; 92610; 94060; 94640; 96374; 96375; 97162; 97166; 97530; 99284